=== PATIENT | female | born 1950 | race Caucasian/White ===

== ENCOUNTER 2016-12-26 08:02 | Day surgery (SDC) | payer BC ==
[2016-12-23 11:39] VITALS: BMI 39.4
[2016-12-26] MEDS ORDERED: CEFAZOLIN/Water 2 GM/20 ML SYRINGE ONE (09:23)
[2016-12-26 09:26] LABS: Hematocrit 39.1 % (36.0-47.0); Mean Platelet Volume 9.8 fL (7.4-10.4); Red Blood Cell (RBC) Count 4.01 mill/uL (4.20-5.40); White Blood Cell (WBC) Count 6.9 thou/uL (4.8-10.8)
[2016-12-26 09:49] LABS: Anion Gap 14 mmol/L (10-20); BUN (Urea Nitrogen) 15 mg/dL (9.8-20.1); Calc. Creatinine Clearance 116 mL/min (70-130); Calcium 9.6 mg/dL (7.8-10.44); Carbon Dioxide 28 mmol/L (23-31); Chloride 102 mmol/L (98-107); Estimated GFR-MDRD 71
[2016-12-26] MEDS ORDERED: Midazolam HCl 2 mg/2 ml Vial ONE (10:15)
[2016-12-26] MEDS ORDERED: Sodium Chloride 0.9% 10 ML ONE (10:45)
[2016-12-26] MEDS ORDERED: Fentanyl 100 MCG/2 ML VIAL ONE ×3 (11:04→12:52)
[2016-12-26] MEDS ORDERED: Ondansetron HCl/PF 4 MG/2 ML Vial ONE (11:12)
[2016-12-26] MEDS ORDERED: Propofol 200 MG/20 ML VIAL ONE (11:12)
[2016-12-26] MEDS ORDERED: Glycopyrrolate 0.2 MG/ML 5 ML SYRINGE ONE (11:12)
[2016-12-26] MEDS ORDERED: Lidocaine 2% MPF 10 ML AMP (For Epidural Use) ONE (11:12)
[2016-12-26] MEDS ORDERED: ePHEDrine/0.9% NaCl/PF SYRINGE 50 mg/10 ml ONE (11:12)
[2016-12-26] MEDS ORDERED: Dexamethasone 20 MG/5 ML VIAL ONE (11:12)
[2016-12-26] MEDS ORDERED: Ketorolac Tromethamine 30 MG/ML VIAL ONE (11:12)
[2016-12-26] MEDS ORDERED: Meperidine HCl/PF 25 MG/ML VIAL ONE (12:26)
--- NOTE | 2016-12-26 12:32 | OP ---
DATE OF PROCEDURE: 12/26/2016 SURGEON: Oswaldo Severino ABRASIVE WORKER: CHERI Lyn PROCEDURE: L4-5 laminectomy, posterolateral arthrodesis, demineralized bone matrix, local morselize d autograft, pedicle screw instrumentation L4-L5. PROCEDURE IN DETAIL: The patient was brought into the operating room, intubated. She was rolled in the prone position on gel-filled chest rolls. Incision made exposing L4 and L5 bilaterally and our level was confirmed by x-ray. We placed pedicle screws at L4 and L5 bilaterally using lateral fluo roscopic guidance and positioning was confirmed with x-ray. A ning was secured between the screws, c onnected by nuts which were final tightened. The wound was then extensively irrigated, immaculate h emostasis was secured. A combination of demineralized bone matrix and local morselized autograft wa s laid over the bony surfaces bilaterally for the purpose of arthrodesis. Vancomycin powder was franco lied and the wound was then closed in anatomic layers.
--- NOTE | 2017-01-04 19:19 | EKG ---
Test Reason : PREOP Blood Pressure : / mmHG Vent. Rate : 056 BPM Atrial Rate : 056 BPM P-R Int : 174 ms QRS Dur : 152 ms QT Int : 490 ms P-R-T Axes : 067 -53 000 degrees QTc Int : 472 ms Sinus bradycardia Left axis deviation Left bundle branch block Abnormal ECG When compared with ECG of 13-JAN-2010 10:01, Nonspecific T wave abnormality has replaced inverted T waves in Inferior leads T wave inversion now evident in Lateral leads Confirmed by FOSTER JAUREGUI (2) on 01/04/2017 7:19:44 PM Referred By: LIDYA Confirmed By:FOSTER JAUREGUI
== END 2016-12-26 15:24 | disposition home or self-care (01) ==
LOC: SDC 08:02
PROVIDERS: ATTEND Neurological Surgery
PROC: 0SG00AJ Fusion of Lumbar Vertebral Joint with Interbody Fusion Device, Posterior Approach, Anterior Column, Open Approach (ICD-10-PCS; principal; 2016-12-26)
DX: M43.16 Spondylolisthesis, lumbar region (principal); I10 Essential (primary) hypertension; I44.7 Left bundle-branch block, unspecified; E78.5 Hyperlipidemia, unspecified; G47.30 Sleep apnea, unspecified; J30.2 Other seasonal allergic rhinitis; L40.50 Arthropathic psoriasis, unspecified; Z79.52 Long term (current) use of systemic steroids; Z79.899 Other long term (current) drug therapy; Z99.89 Dependence on other enabling machines and devices; Z96.7 Presence of other bone and tendon implants; Z96.651 Presence of right artificial knee joint; Z98.890 Other specified postprocedural states; Z87.891 Personal history of nicotine dependence
CPT/HCPCS: 36415; 76001; 80048; 85027; 93005; 93010; 96374; A4216; C1713; C1768; J1100; J1170; J1885; J2001; J2175; J2250; J2405; J2704; J3010; J3370; J3490

== ENCOUNTER 2017-01-10 10:07 | Outpatient (CLI) | payer BC ==
--- NOTE | 2017-01-10 11:43 | RAD ---
TWO VIEWS LUMBAR SPINE: Date: 01-10-17 History: Lumbar spondylosis with myelopathy. Post-surgery two weeks ago. Comparison: None available. FINDINGS: Six non-rib bearing lumbar type vertebral bodies, but the T12 ribs are probably hypoplastic. For the purposes of this examination, the T12 ribs will be presumed to be hypoplastic with five non-rib beari ng lumbar type vertebral bodies and the lumbosacral junction numbered L5-S1. There are post-surgical changes of the lumbar spine related to posterior fusion at the L4-5 level wit h bipedicular screws and posterior rods transfixing this level. There is mild grade 1 anterolisthesis of L4 on L5. No hardware complication is seen. There is no evidence of a fracture. The vertebral bod y heights are within normal limits. Multilevel osteophytes are present. There is multilevel intervert ebral disc space narrowing present. No additional level of subluxation is seen and there is no fractu re identified. There is a curvilinear area of increased density seen overlying the left lower quadrant which is of u ncertain etiology. This could be artifactual, partially calcified structure within the abdomen cannot be entirely excluded. IMPRESSION: 1. There are curvilinear radiopaque densities, possibly calcifications, overlying the left lower quad rant of the abdomen. This cannot be further localized and the exact etiology is uncertain. This could be artifactual, but a calcified structure within the abdomen is a possibility. Abdominal radiograph is recommended for further evaluation. 2. Slight right convex curvature of the lumbar spine. 3. Post-surgical changes L4-5 level related to posterior fusion. No hardware complication is seen. 4. Scattered multilevel degenerative changes of the lumbar spine. POS: [facility]
== END 2017-01-10 10:08 | disposition home or self-care (01) ==
LOC: TBSIIMAG 10:07
PROVIDERS: ATTEND Physician Assistant
DX: M47.816 Spondylosis without myelopathy or radiculopathy, lumbar region (principal); Z98.1 Arthrodesis status
CPT/HCPCS: 72100

== ENCOUNTER 2017-02-28 14:23 | Outpatient (CLI) | payer BC ==
--- NOTE | 2017-02-28 15:32 | RAD ---
LUMBAR SPINE RADIOGRAPHS TWO VIEWS: Date: 02-28-17 Provided Clinical History: Other intervertebral disc degeneration. FINDINGS: Comparison 01-10-17. Lumbar alignment is unchanged. Bilateral pedical screws and vertical interconnecting rods are again n oted spanning L4-5. No evidence for hardware loosening or migration. Vertebral body heights appear pr eserved. Lumbar degenerative changes appear similar to the prior study. Visualized pedicles appear in tact. IMPRESSION: Stable radiographic appearance of the lumbar spine. POS: [facility]
== END 2017-02-28 14:24 | disposition home or self-care (01) ==
LOC: TBSIIMAG 14:23
PROVIDERS: ATTEND Neurological Surgery
DX: M51.36 Other intervertebral disc degeneration, lumbar region (principal)
CPT/HCPCS: 72100

== ENCOUNTER 2017-05-12 10:01 | Outpatient (CLI) | payer BC ==
--- NOTE | 2017-05-12 10:27 | RAD ---
RADIOGRAPH CHEST 2 VIEWS: HISTORY: 66-year-old female with allergic reaction. No other information is available. FINDINGS: There is cardiomegaly. The thoracic aorta is tortuous and ectatic. There is no evidence of air space density, pulmonary edema, or pneumothorax. There is no pleural effusion. IMPRESSION: 1) No acute pulmonary findings. 2) Cardiomegaly without congestive heart failure. 3) Ectasia of thoracic aorta. edwige POS: [facility]
== END 2017-05-12 10:02 | disposition home or self-care (01) ==
LOC: RAD-FRANK 10:01
PROVIDERS: ATTEND Nurse Practitioner Family
DX: Z88.9 Allergy status to unspecified drugs, medicaments and biological substances (principal); I51.7 Cardiomegaly; I77.810 Thoracic aortic ectasia
CPT/HCPCS: 71046

== ENCOUNTER 2017-08-25 08:33 | Outpatient (CLI) | payer BC ==
--- NOTE | 2017-08-25 09:57 | RAD ---
CHEST 2 VIEWS: HISTORY: Dyspnea. COMPARISON: 05/12/17. FINDINGS: Cardiac silhouette remains enlarged. Pulmonary vasculature upper limits of normal. Mediastinum midl ine. No lobar consolidation, pneumothorax, or pleural fluid are evident. IMPRESSION: Mild pulmonary vascular congestion, cardiomegaly, and other chronic-type findings are stable. POS: [facility]
== END 2017-08-25 08:34 | disposition home or self-care (01) ==
LOC: RAD-FRANK 08:33
PROVIDERS: ATTEND Nurse Practitioner Family
DX: R06.02 Shortness of breath (principal); I51.7 Cardiomegaly; R09.89 Other specified symptoms and signs involving the circulatory and respiratory systems
CPT/HCPCS: 71046

== ENCOUNTER 2018-03-30 12:49 | Outpatient (CLI) | payer MEDICARE, BC ==
--- NOTE | 2018-03-30 14:57 | RAD ---
LUMBAR SPINE RADIOGRAPHS 4 VIEWS: DATE: 03/30/2018. PROVIDED CLINICAL HISTORY: Lumbar stenosis. FINDINGS: Comparison is made with the study dated 02/28/2017. Five [id number] lumbar-type vertebral bodies are again demonstrated. Slight retrolisthesis of L3 on L4 and L2 on L3 redemonstrated. Slight anter olisthesis at L4 on L5 redemonstrated. Bilateral pedicle screws and vertical interconnecting rods ar e noted spanning L4-5 without evidence for hardware loosening or migration. There is no abnormal tra nslational motion with flexion and extension. Prominent degenerative disk changes are seen at L1-2. IMPRESSION: Stable exam. POS: [facility]
--- NOTE | 2018-03-30 15:04 | MRI ---
MRI LUMBAR SPINE WITH AND WITHOUT IV CONTRAST: DATE: 03/30/2018. PROVIDED CLINICAL HISTORY: Lumbar stenosis. FINDINGS: Comparison is made with the study dated 12/03/2016. Five lumbar vertebral bodies demonstrated on radiographs performed concurrently. Lumbar alignment ap pears unchanged. Interval placement of bilateral pedicle screws and vertical interconnecting rods sp anning L4-5. Regional marrow signal unaffected by susceptibility artifact appears normal. Vertebral body heights are preserved. The conus medullaris is normal in signal and terminates at an appropria te level. At L1-2, there is conspicuous disk space height loss and end plate degenerative change with a broad-b ased disk bulge and accompanying osteophyte. There is mild-moderate central canal stenosis. There i s no significant foraminal narrowing apparent. At L2-3, there is a broad-based disk bulge with a small central disk protrusion. There is mild centr al canal stenosis. There is mild bilateral facet arthritis. There is no significant foraminal narro wing apparent. At L3-4, there is bilateral facet arthritis. There is no significant central canal or foraminal narr owing apparent. At L4-5, there is no significant central canal stenosis apparent. There is mild-moderate left forami nal narrowing. There is no significant right foraminal narrowing. At L5-S1, there is bilateral facet arthritis and a broad-based disk bulge. There is no significant c entral canal or foraminal narrowing apparent. There is no abnormal contrast enhancement identified. IMPRESSION: Degenerative and postoperative changes involving the lumbar spine as described above, appearing not s ignificantly changed with respect to 11/23/2016. POS: [facility]
== END 2018-03-30 12:50 | disposition home or self-care (01) ==
LOC: BICMRI 12:49
PROVIDERS: ATTEND Nurse Practitioner Family
DX: M47.26 Other spondylosis with radiculopathy, lumbar region (principal); M48.061 Spinal stenosis, lumbar region without neurogenic claudication; Z98.890 Other specified postprocedural states
CPT/HCPCS: 72110; 72158; 82565

== ENCOUNTER 2018-08-08 14:28 | Outpatient (CLI) | payer MEDICARE, BC ==
--- NOTE | 2018-08-08 15:01 | RAD ---
EXAM: Chest PA and lateral: HISTORY: Dyspnea. COMPARISON: 08/25/2017 FINDINGS: Heart: Normal cardiac silhouette Aorta: Unremarkable Pulmonary vessels: Prominent Costophrenic angles: Costophrenic angles are clear. Lungs: Patchy interstitial opacities in the lung bases. Chronic changes favored. Superimposed infiltr ate in the left lung base cannot be entirely excluded. Pneumothorax: No pneumothorax Osseous structures: No osseous abnormalities IMPRESSION: Chronic changes in the lung parenchyma. Pulmonary vascular congestion. Superimposed infiltrate at lef t lung base cannot be excluded.
== END 2018-08-08 14:29 | disposition home or self-care (01) ==
LOC: RAD-FRANK 14:28
PROVIDERS: ATTEND Internal Medicine Cardiovascular Disease
DX: R06.02 Shortness of breath (principal); R06.00 Dyspnea, unspecified; R09.89 Other specified symptoms and signs involving the circulatory and respiratory systems
CPT/HCPCS: 71046

== ENCOUNTER 2019-03-18 14:12 | Outpatient (CLI) | payer MEDICARE, BC ==
--- NOTE | 2019-03-18 15:31 | RAD ---
LEFT FOOT THREE VIEWS: History: Foot pain. FINDINGS: Small enthesophyte from the plantar calcaneus. Mild degenerative change of the intertarsal joints and the tarsal metatarsal joints. Mild DJD at the first MCP joint. No fracture or acute abnormality. IMPRESSION: Degenerative changes as described. POS: [facility]
== END 2019-03-18 14:13 | disposition home or self-care (01) ==
LOC: RAD-FRANK 14:12
PROVIDERS: ATTEND Nurse Practitioner Family
DX: M79.672 Pain in left foot (principal); M19.072 Primary osteoarthritis, left ankle and foot

== ENCOUNTER 2019-11-25 07:36 | Outpatient (CLI) | payer MEDICARE, BC, OTHER ==
[2019-11-26 16:20] LABS: SARS-CoV-2 MS2 Positive; SARS-CoV-2 N Gene Negative; SARS-CoV-2 S Gene Negative; SARS-CoV-2 by NAA Not Detected (NotDetected); SARS-CoV-2 orf1ab Negative
== END 2019-11-25 07:37 | disposition home or self-care (01) ==
LOC: LABBT 07:36
PROVIDERS: ATTEND Specialist
DX: M96.1 Postlaminectomy syndrome, not elsewhere classified (principal); G89.4 Chronic pain syndrome; Z20.828 Contact with and (suspected) exposure to other viral communicable diseases
CPT/HCPCS: 87635; U0003

== ENCOUNTER 2019-12-16 07:47 | Outpatient (CLI) | payer MEDICARE, BC, OTHER ==
[2019-12-17 11:05] LABS: SARS-CoV-2 MS2 Positive; SARS-CoV-2 N Gene Negative; SARS-CoV-2 S Gene Negative; SARS-CoV-2 by NAA Not Detected (NotDetected); SARS-CoV-2 orf1ab Negative
== END 2019-12-16 07:48 | disposition home or self-care (01) ==
LOC: LABBT 07:47
PROVIDERS: ATTEND Specialist
DX: M96.1 Postlaminectomy syndrome, not elsewhere classified (principal); G89.4 Chronic pain syndrome; Z20.828 Contact with and (suspected) exposure to other viral communicable diseases
CPT/HCPCS: 87635; U0003

== ENCOUNTER 2019-12-19 10:00 | Day surgery (SDC) | payer MEDICARE, BC ==
[2019-12-18 09:23] VITALS: BMI 44.6
[2019-12-19] MEDS ORDERED: PROPOFOL 200 MG/20 ML VIAL ONE (10:33)
[2019-12-19] MEDS ORDERED: Sodium Chloride 0.9% 100 ML ONE (10:59)
[2019-12-19] MEDS ORDERED: CEFAZOLIN 1 GM VIAL ONE (10:59)
[2019-12-19] MEDS ORDERED: Fentanyl 100 MCG/2 ML VIAL ONE (11:19)
[2019-12-19] MEDS ORDERED: Propofol 500 MG/50 ML VIAL ONE ×3 (12:23→14:14)
[2019-12-19] MEDS ORDERED: Midazolam HCl 2 mg/2 ml Vial ONE (12:23)
[2019-12-19] MEDS ORDERED: EPINEPHrine 1 MG/ML AMP ONE (12:35)
[2019-12-19] MEDS ORDERED: Bupivacaine PF 0.5% 30 ML VIAL ONE ×2 (12:35→12:36)
[2019-12-19] MEDS ORDERED: Lidocaine 1% (PF) 30 ML VIAL ONE (13:17)
--- NOTE | 2019-12-19 17:12 | RAD ---
THORACIC SPINE: 12/19/19 Two fluoroscopic views obtained. INDICATIONS: Fluoroscopic imaging during dorsal column stimulator implantation. FINDINGS/IMPRESSION: There are lateral and AP views obtained. The leads appear to reside at the T7 level. POS: [facility]
--- NOTE | 2019-12-19 19:09 | OP ---
DATE OF PROCEDURE: 12/19/2019 PREOPERATIVE DIAGNOSES: 1. Post-laminectomy syndrome. 2. Chronic pain syndrome. 3. Lumbar radiculopathy. POSTOPERATIVE DIAGNOSES: 1. Post-laminectomy syndrome. 2. Chronic pain syndrome. 3. Lumbar radiculopathy. PROCEDURES PERFORMED: 1. Spinal cord stimulator generator implant. 2. Spinal cord stimulator lead implant x2. DESCRIPTION OF PROCEDURE: The patient was taken to the operating room and placed prone on the operating room table. We prepped the back with DuraPrep. Sterile drapes were applied. Time-out was performed. Using fluoroscopy, we located the interspace of T12-L1. We anesthetized the skin with 0.5% Marcaine with epinephrine and made an incision in midline and blunt dissected this down to fascia. We then inserted the supplied 14-gauge Touhy needle in a paramedian technique and engaged it in the T12-L1 ligament. We used loss of resistance to air to achieve access to the epidural space. Once accessed, the aspiration was negative for heme or CSF. An 8-contact Medtronic lead was threaded through the needle up the midline dorsal epidural space to the bottom of T7. The same procedure was conducted on the contralateral side for a parallel lead ending at the same level. Testing was performed intraoperatively with the patient awake and the patient noted paresthesia in all pain areas. We then took the needle out and the stylets out, taking care not to move the leads. An anchor was placed over both leads and the anchor was fixated to fascia using 2-0 silk suture x2 for each lead. We anesthetized the pocket area in the right upper buttock. We used a scalpel to make an incision and blunt dissected this down to Alexy's fascia. This was blunt dissected inferiorly and superiorly to make a pocket. We used a tunneling device to make a tunnel between the two pockets and then threaded the lead through the tunnel and brought the ends of the leads to the battery pocket area. These were attached to the battery and fixated down to the battery with the torque wrench. Testing was performed and impedances were all good. The battery was placed inside the pocket. The fascial layers were approximated using 2-0 Vicryl suture in horizontal mattress and simple interrupted stitches in two layers and the skin was brought together with subcuticular stitch using 3-0 Rapide. Dermabond was placed over the wounds and allowed to dry. The lead incision was also reinforced with Mastisol and Steri-Strips. Sterile 4x4s were placed over the wounds and Medipore tape was used to fixate these to the skin. The patient was taken to the Day Stay under stable condition. Job ID: [id number]
== END 2019-12-19 16:05 | disposition home or self-care (01) ==
LOC: SDC 10:00
PROVIDERS: ATTEND Specialist
PROC: 0JH70DZ Insertion of Multiple Array Stimulator Generator into Back Subcutaneous Tissue and Fascia, Open Approach (ICD-10-PCS; principal; 2019-12-19)
PROC: 00HU3MZ Insertion of Neurostimulator Lead into Spinal Canal, Percutaneous Approach (ICD-10-PCS; 2019-12-19)
DX: M96.1 Postlaminectomy syndrome, not elsewhere classified (principal); G89.4 Chronic pain syndrome; M54.16 Radiculopathy, lumbar region; Z79.82 Long term (current) use of aspirin; Z79.899 Other long term (current) drug therapy; Z88.2 Allergy status to sulfonamides; Z88.5 Allergy status to narcotic agent
CPT/HCPCS: 63650 ×2; 63685; 72070; 76000; C1778; C1787; L8679; L8689; J0171; J0690; J2001; J2250; J2704; J3010; J3490; S0020

== ENCOUNTER 2019-12-31 12:22 | Outpatient (CLI) | payer MEDICARE, BC ==
--- NOTE | 2019-12-31 12:58 | RAD ---
XR Foot Rt 3 View STANDARD History: Pain in right foot Comparison: None. Findings: Mild hallux valgus deformity and metatarsus primus varus. Advanced first and second metatar pranay phalangeal joint degenerative disease with narrowing and large osteophyte formation. No acute displaced fracture or malalignment. Mild soft tissue swelling of the ankle. Mild anterior me dial phleboliths of the distal tibia. Old fifth metatarsal fracture. Impression: Chronic findings. No acute osseous abnormality.
--- NOTE | 2019-12-31 13:17 | RAD ---
Exam: Left foot 3 views: HISTORY: Pain previous fracture COMPARISON: 03/18/2019 FINDINGS: There is an incomplete union irregular transverse fracture through the base of the fifth metatarsal. Minimal degenerative and osteoarthrosis change. No evidence for a new acute fracture. IMPRESSION: Incomplete union irregular transverse fracture base of the right fifth metatarsal.
== END 2019-12-31 12:23 | disposition home or self-care (01) ==
LOC: BICRAD 12:22
PROVIDERS: ATTEND Internal Medicine Rheumatology
DX: M79.671 Pain in right foot (principal); M79.672 Pain in left foot; S92.352K Displaced fracture of fifth metatarsal bone, left foot, subsequent encounter for fracture with nonunion

== ENCOUNTER 2020-02-05 10:34 | Day surgery (SDC) | payer MEDICARE, BC ==
[2020-02-05] MEDS ORDERED: Acetaminophen 500 MG TAB PO PRN ×2 (10:41)
[2020-02-05] MEDS ORDERED: diphenhydrAMINE 50 MG/ML VIAL IVP PRN (10:42)
[2020-02-05] MEDS ORDERED: INFLIXIMAB-DYYB 700 MG in Sodium Chloride 0.9% 250 ML 180 ML IV SCH (10:45)
[2020-02-05] MEDS ORDERED: Sodium Chloride 0.9% 20 ML ONE (10:50)
[2020-02-05 11:50] VITALS: BP 144/66; TEMP 98.1
== END 2020-02-05 14:39 | disposition home or self-care (01) ==
LOC: ONC/OP 10:34
PROVIDERS: ATTEND Internal Medicine Rheumatology
DX: L40.50 Arthropathic psoriasis, unspecified (principal); Z88.2 Allergy status to sulfonamides; Z88.5 Allergy status to narcotic agent
CPT/HCPCS: 96375; 96413; 96415; J1200; J7050; Q5103

== ENCOUNTER 2020-02-25 11:08 | Outpatient (CLI) | payer MEDICARE ==
--- NOTE | 2020-02-25 12:11 | RAD ---
PA AND LATERAL CHEST: HISTORY: Shortness of breath. COMPARISON: 08/08/2018 study. FINDINGS: Heart size is enlarged. Aorta is tortuous. The lungs are clear of infiltrates. A dorsal column sti mulator is seen. Catheter tip is at the mid thoracic spine level. IMPRESSION: Mild cardiomegaly. POS: [facility]
== END 2020-02-25 11:09 | disposition home or self-care (01) ==
LOC: RAD-FRANK 11:08
PROVIDERS: ATTEND Nurse Practitioner Family
DX: R06.02 Shortness of breath (principal); I51.7 Cardiomegaly
CPT/HCPCS: 71046

== ENCOUNTER 2020-03-18 10:29 | Day surgery (SDC) | payer MEDICARE, BC ==
[~2020-03-18 10:29] MED LIST: Acetaminophen 500 MG TAB PO PRN; Acetaminophen 500 MG TAB PO SCH; INFLIXIMAB IVPB SCH; INFLIXIMAB-DYYB 700 MG in Sodium Chloride 0.9% 250 ML 180 ML IV SCH; SODIUM CHLORIDE 0.9% IVPB SCH; diphenhydrAMINE 50 MG/ML VIAL IVP SCH
[2020-03-18] MEDS ORDERED: Sodium Chloride 0.9% 20 ML ONE (10:36)
[2020-03-18 10:54] VITALS: BP 129/69; TEMP 97.8
[2020-03-18] MEDS ORDERED: FLU VACC QS2020-21(65YR UP)/PF 240 MCG/0.7 ML SYRINGE IM ONE (11:00)
== END 2020-03-18 16:10 | disposition home or self-care (01) ==
LOC: ONC/OP 10:29
PROVIDERS: ATTEND Internal Medicine Rheumatology
DX: L40.50 Arthropathic psoriasis, unspecified (principal); Z88.2 Allergy status to sulfonamides; Z88.5 Allergy status to narcotic agent
CPT/HCPCS: 96375; 96413; 96415; J1200; J1745; J7050; Q5103

== ENCOUNTER 2020-05-05 12:56 | Day surgery (SDC) | payer MEDICARE, BC ==
[~2020-05-05 12:56] MED LIST changes: -INFLIXIMAB IVPB SCH; -INFLIXIMAB-DYYB 700 MG in Sodium Chloride 0.9% 250 ML 180 ML IV SCH; +INFLIXIMAB-DYYB 700 MG in Sodium Chloride 0.9% 250 ML 180 ML IVPB SCH; -SODIUM CHLORIDE 0.9% IVPB SCH
[2020-05-05] MEDS ORDERED: Sodium Chloride 0.9% 20 ML ONE (13:01)
== END 2020-05-05 16:16 | disposition home or self-care (01) ==
LOC: ONC/OP 12:56
PROVIDERS: ATTEND Internal Medicine Rheumatology
DX: L40.50 Arthropathic psoriasis, unspecified (principal); Z88.2 Allergy status to sulfonamides; Z88.5 Allergy status to narcotic agent
CPT/HCPCS: 96375; 96413; 96415; J1200; J7050; Q5103

== ENCOUNTER 2020-05-07 13:25 | Outpatient (CLI) | payer MEDICARE, BC | END 2020-05-07 13:26 | disposition home or self-care (01) | LOC: BICMAMMO 13:25 | PROVIDERS: ATTEND Internal Medicine Pulmonary Disease | DX: M19.041 Primary osteoarthritis, right hand (principal); M81.0 Age-related osteoporosis without current pathological fracture; M85.89 Other specified disorders of bone density and structure, multiple sites | CPT/HCPCS: 77080 ==

== ENCOUNTER 2020-06-16 12:50 | Day surgery (SDC) | payer MEDICARE, BC ==
[2020-06-16 14:37] VITALS: BP 158/67; TEMP 98.1
== END 2020-06-16 16:14 | disposition home or self-care (01) ==
LOC: ONC/OP 12:50
PROVIDERS: ATTEND Internal Medicine Rheumatology
DX: L40.50 Arthropathic psoriasis, unspecified (principal); Z88.2 Allergy status to sulfonamides; Z88.8 Allergy status to other drugs, medicaments and biological substances
CPT/HCPCS: 96413; 96415; J7050; Q5103

== ENCOUNTER → 2020-07-28 | Day surgery (SDC) | payer MEDICARE, BC ==
[~2020-07-28] MED LIST changes: +INFLIXIMAB DYYB IVPB SCH; +SODIUM CHLORIDE 0.9% IVPB SCH; +Sodium Chloride 0.9% 20 ML ONE; +diphenhydrAMINE 25 MG CAP PO SCH
[2020-07-28 13:21] VITALS: BP 150/71; TEMP 98.1
== END ==
LOC: ONC/OP 12:55
PROVIDERS: ATTEND Internal Medicine Rheumatology
DX: L40.50 Arthropathic psoriasis, unspecified (principal); Z88.1 Allergy status to other antibiotic agents; Z88.2 Allergy status to sulfonamides; Z88.5 Allergy status to narcotic agent
CPT/HCPCS: 96413; 96415; J7050; Q0163; Q5103

== ENCOUNTER 2020-11-26 10:50 | Outpatient (CLI) | payer MEDICARE, BC | END 2020-11-26 10:51 | disposition home or self-care (01) | LOC: BICMAMMO 10:50 | PROVIDERS: ATTEND Obstetrics & Gynecology | DX: Z12.31 Encounter for screening mammogram for malignant neoplasm of breast (principal); M47.26 Other spondylosis with radiculopathy, lumbar region; Z96.82 Presence of neurostimulator; Z98.890 Other specified postprocedural states | CPT/HCPCS: 72110; 77063; 77067 ==

== ENCOUNTER 2020-12-01 13:07 | Day surgery (SDC) | payer MEDICARE, BC ==
[~2020-12-01 13:07] MED LIST changes: -INFLIXIMAB DYYB IVPB SCH; -SODIUM CHLORIDE 0.9% IVPB SCH; -Sodium Chloride 0.9% 20 ML ONE
[2020-12-01 14:19] LABS: ALT (SGPT) 45 U/L (8-55); AST (SGOT) 44 U/L (5-34); Albumin 3.5 g/dL (3.4-4.8); Alkaline Phosphatase 90 U/L (40-110); Anion Gap 13 mmol/L (10-20); BUN (Urea Nitrogen) 11 mg/dL (9.8-20.1); Bilirubin, Total 0.6 mg/dL (0.2-1.2); CRP (Inflammatory) Less than 0.50 mg/dL (= or < 0.5); Calc. Creatinine Clearance 0 mL/min (70-130); Calcium 8.6 mg/dL (7.8-10.44); Carbon Dioxide 27 mmol/L (23-31); Chloride 104 mmol/L (98-107); Glucose 118 mg/dL (80-115); Potassium 3.4 mmol/L (3.5-5.1); Protein, Total 6.5 g/dL (5.8-8.1); Sodium 141 mmol/L (136-145)
[2020-12-01 14:26] LABS: Band 9 % (5-11); Hemoglobin 14.7 g/dL (12.0-16.0); Lymphocytes 13 % (21-51); MDiff Complete? YES; Mean Corpuscular HGB CONC 34.4 g/dL (32.0-36.0); Mean Corpuscular Volume 98.7 fL (78.0-98.0); Mean Platelet Volume 9.4 fL (7.4-10.4); Monocytes 13 % (0-10); Myelocyte 1 % (0-0); Neutrophil 62 % (42-75); Platelet Count 121 thou/uL (130-400); Platelet Morphology Comment Appears Decreased; RBC Distribution Width 13.1 % (11.5-14.5); RBC Morphology Normal; Reactive Lymphocytes 2 % (0-10); Red Blood Cell (RBC) Count 4.34 mill/uL (4.20-5.40); White Blood Cell (WBC) Count 12.4 thou/uL (4.8-10.8)
[2020-12-01 14:57] VITALS: BP 179/84; TEMP 98.7
== END 2020-12-01 15:47 | disposition home or self-care (01) ==
LOC: ONC/OP 13:07
PROVIDERS: ATTEND Internal Medicine Rheumatology
DX: L40.50 Arthropathic psoriasis, unspecified (principal); Z88.1 Allergy status to other antibiotic agents; Z88.2 Allergy status to sulfonamides; Z88.8 Allergy status to other drugs, medicaments and biological substances
CPT/HCPCS: 36415; 80053; 85025; 85652; 86140; 96413; 96415; J1200; J7050; Q5103

== ENCOUNTER 2020-12-23 10:20 | Inpatient (IN) | payer MEDICARE, BC ==
[2020-12-23] MEDS ORDERED: Dexamethasone 10 MG/ML VIAL ONE (10:58)
[2020-12-23] MEDS ORDERED: Morphine 4 MG/ML VIAL ONE ×3 (10:58→14:52)
[2020-12-23] MEDS ORDERED: Acetaminophen 325 MG TAB PO PRN (16:18)
[2020-12-23] MEDS ORDERED: HYDROcodone/Acetaminophen 5/325 mg Tablet PO PRN (16:18)
[2020-12-23] MEDS ORDERED: Bisacodyl 10 MG SUPP PR PRN (16:18)
[2020-12-23] MEDS ORDERED: Ondansetron PF 4 MG/2 ML Vial IVP PRN (16:18)
[2020-12-23] MEDS ORDERED: Bisacodyl 5 MG TAB PO PRN (16:18)
[2020-12-23] MEDS ORDERED: Senokot S 8.6-50 MG TAB PO PRN (16:18)
[2020-12-23 16:54] LABS: Hemoglobin 14.9 g/dL (12.0-16.0); Mean Corpuscular HGB CONC 32.8 g/dL (32.0-36.0); Mean Corpuscular Hemoglobin 33.3 pg (27.0-31.0); Mean Platelet Volume 11.1 fL (7.4-10.4); Platelet Count 139 thou/uL (130-400); RBC Distribution Width 12.5 % (11.5-14.5); White Blood Cell (WBC) Count 9.8 thou/uL (4.8-10.8)
[2020-12-23 17:03] LABS: PTT 24.4 sec (22.9-36.1)
[2020-12-23 17:13] LABS: Band 11 % (5-11); Lymphocytes 8 % (21-51); MDiff Complete? YES; Neutrophil 81 % (42-75); Nucleated RBC 1 % (0); Platelet Morphology Comment Appears Adequate; RBC Morphology Normal
[2020-12-23 17:14] LABS: ALT (SGPT) 68 U/L (8-55); AST (SGOT) 36 U/L (5-34); Albumin 3.6 g/dL (3.4-4.8); Alkaline Phosphatase 87 U/L (40-110); Anion Gap 14 mmol/L (10-20); BUN (Urea Nitrogen) 20 mg/dL (9.8-20.1); Bilirubin, Total 0.6 mg/dL (0.2-1.2); Calc. Creatinine Clearance 0 mL/min (70-130); Calcium 8.6 mg/dL (7.8-10.44); Carbon Dioxide 25 mmol/L (23-31); Chloride 103 mmol/L (98-107); Glucose 206 mg/dL (80-115); Magnesium 2.1 mg/dL (1.6-2.6); Phosphorus 3.3 mg/dL (2.3-4.7); Potassium 4.6 mmol/L (3.5-5.1); Protein, Total 6.6 g/dL (5.8-8.1); Sodium 137 mmol/L (136-145)
[2020-12-23 18:15] VITALS: BMI 44.6
[2020-12-23] MEDS: Ketorolac Tromethamine 30 MG/ML VIAL IVP SCH (19:03)
[2020-12-23] MEDS: Hydrochlorothiazide 25 MG TAB PO SCH (21:20)
[2020-12-23] MEDS: Atorvastatin Calcium 10 MG TAB PO SCH (21:20)
[2020-12-23] MEDS: Gabapentin 300 MG CAP PO SCH (21:20)
[2020-12-23] MEDS: Losartan 25 MG TAB PO SCH (21:21)
[2020-12-23] MEDS: Amlodipine 5 MG TAB PO SCH (21:21)
[2020-12-23] MEDS: HYDROcodone/Acetaminophen 5/325 mg Tablet PO PRN (22:38)
[2020-12-24] MEDS: Ketorolac Tromethamine 30 MG/ML VIAL IVP SCH ×4 (00:32→18:18)
[2020-12-24] MEDS: HYDROmorphone 2 MG TAB PO PRN ×2 (05:49→16:59)
[2020-12-24 06:32] LABS: #Lymphocytes 1.1 thou/uL (1.20-3.40); #Monocytes 1.2 thou/uL (0.11-0.59); #Neutrophils 10.1 thou/uL (1.40-6.50); %Basophils 0.2 % (0.0-1.0); %Eosinophils 0.4 % (0.0-10.0); %Lymphocytes 8.9 % (21.0-51.0); %Monocytes 9.5 % (0.0-10.0); Hemoglobin 14.4 g/dL (12.0-16.0); Mean Corpuscular HGB CONC 32.2 g/dL (32.0-36.0); Mean Corpuscular Hemoglobin 32.4 pg (27.0-31.0); Mean Platelet Volume 10.6 fL (7.4-10.4); Platelet Count 142 thou/uL (130-400); RBC Distribution Width 12.3 % (11.5-14.5); Red Blood Cell (RBC) Count 4.45 mill/uL (4.20-5.40); White Blood Cell (WBC) Count 12.5 thou/uL (4.8-10.8)
[2020-12-24 06:38] LABS: Hemoglobin A1c 5.5 % (4.0-6.0)
[2020-12-24 06:52] LABS: ALT (SGPT) 58 U/L (8-55); AST (SGOT) 25 U/L (5-34); Albumin 3.3 g/dL (3.4-4.8); Alkaline Phosphatase 91 U/L (40-110); Anion Gap 11 mmol/L (10-20); BUN (Urea Nitrogen) 26 mg/dL (9.8-20.1); Bilirubin, Total 0.4 mg/dL (0.2-1.2); Calc. Creatinine Clearance 119 mL/min (70-130); Calcium 8.7 mg/dL (7.8-10.44); Carbon Dioxide 26 mmol/L (23-31); Cardiac Risk 2.7 (Less than 4.5); Chloride 105 mmol/L (98-107); Cholesterol 185 mg/dl (< 200 Desired); Globulin 2.7 g/dL (2.4-3.5); Glucose 99 mg/dL (80-115); HDL Cholesterol 69 mg/dL (>60 Neg Risk); LDL Cholesterol, Calculated 97 mg/dL; Magnesium 2.3 mg/dL (1.6-2.6); Phosphorus 2.7 mg/dL (2.3-4.7); Sodium 138 mmol/L (136-145); Triglycerides 96 mg/dL (Less than 150)
[2020-12-24] MEDS: Lidocaine 5% Patch TD SCH (09:29)
[2020-12-24] MEDS: Dexamethasone 10 MG/ML VIAL SLOW IVP SCH ×2 (09:30→20:54)
[2020-12-24] MEDS: Aspirin 81 mg Enteric Coated Tablet PO SCH (09:30)
[2020-12-24] MEDS: Amlodipine 5 MG TAB PO SCH ×2 (09:30→20:53)
[2020-12-24] MEDS: Calcium Carbonate 600 MG TAB PO SCH (09:30)
[2020-12-24] MEDS: DULoxetine 60 MG CAP PO SCH (09:31)
[2020-12-24] MEDS: Gabapentin 300 MG CAP PO SCH ×3 (09:31→20:54)
[2020-12-24] MEDS: Fish Oil 1,000 MG CAP PO SCH (09:31)
[2020-12-24] MEDS: Folic Acid 1 MG TAB PO SCH (09:31)
[2020-12-24] MEDS: Potassium Chloride 20 MEQ TAB PO SCH (09:32)
[2020-12-24] MEDS: Multivitamin W/ Minerals 1 TAB PO SCH (09:32)
[2020-12-24] MEDS: HYDROcodone/Acetaminophen 5/325 mg Tablet PO PRN (09:33)
[2020-12-24] MEDS ORDERED: Dexamethasone 10 MG/ML VIAL SLOW IVP SCH (11:15)
[2020-12-24] MEDS: Atorvastatin Calcium 10 MG TAB PO SCH (20:54)
[2020-12-24] MEDS: Losartan 25 MG TAB PO SCH (20:55)
[2020-12-24] MEDS: Hydrochlorothiazide 25 MG TAB PO SCH (20:55)
[2020-12-24] MEDS: Transdermal Patch Removal TOP SCH (21:02)
[2020-12-25] MEDS: HYDROcodone/Acetaminophen 5/325 mg Tablet PO PRN ×2 (04:57→09:36)
[2020-12-25 06:16] LABS: #Eosinphils 0.1 thou/uL (0.0-0.7); #Lymphocytes 0.7 thou/uL (1.20-3.40); #Monocytes 0.3 thou/uL (0.11-0.59); #Neutrophils 12.1 thou/uL (1.40-6.50); %Basophils 0.1 % (0.0-1.0); %Eosinophils 0.5 % (0.0-10.0); %Lymphocytes 5.4 % (21.0-51.0); %Monocytes 2.3 % (0.0-10.0); %Neutrophils 91.6 % (42.0-75.0); Hemoglobin 14.4 g/dL (12.0-16.0); Mean Corpuscular HGB CONC 33.6 g/dL (32.0-36.0); Mean Corpuscular Hemoglobin 33.4 pg (27.0-31.0); Mean Corpuscular Volume 99.5 fL (78.0-98.0); Mean Platelet Volume 10.8 fL (7.4-10.4); Platelet Count 141 thou/uL (130-400); RBC Distribution Width 12.3 % (11.5-14.5); Red Blood Cell (RBC) Count 4.31 mill/uL (4.20-5.40); White Blood Cell (WBC) Count 13.2 thou/uL (4.8-10.8)
[2020-12-25] MEDS: HYDROmorphone 2 MG TAB PO PRN ×2 (06:34→13:59)
[2020-12-25 07:06] LABS: ALT (SGPT) 58 U/L (8-55); AST (SGOT) 26 U/L (5-34); Albumin 3.2 g/dL (3.4-4.8); Alkaline Phosphatase 86 U/L (40-110); Anion Gap 14 mmol/L (10-20); BUN (Urea Nitrogen) 22 mg/dL (9.8-20.1); Bilirubin, Total 0.4 mg/dL (0.2-1.2); Calc. Creatinine Clearance 127 mL/min (70-130); Calcium 8.1 mg/dL (7.8-10.44); Carbon Dioxide 24 mmol/L (23-31); Chloride 104 mmol/L (98-107); Globulin 2.5 g/dL (2.4-3.5); Glucose 131 mg/dL (80-115); Magnesium 2.2 mg/dL (1.6-2.6); Potassium 3.7 mmol/L (3.5-5.1); Protein, Total 5.7 g/dL (5.8-8.1); Sodium 138 mmol/L (136-145)
[2020-12-25] MEDS ORDERED: Diazepam 5 MG TAB PO SCH (07:30)
[2020-12-25] MEDS: Lidocaine 5% Patch TD SCH (08:22)
[2020-12-25] MEDS: Fish Oil 1,000 MG CAP PO SCH (08:22)
[2020-12-25] MEDS: Cyclobenzaprine 10 MG TAB PO SCH ×3 (08:23→20:56)
[2020-12-25] MEDS: Calcium Carbonate 600 MG TAB PO SCH (08:23)
[2020-12-25] MEDS: Folic Acid 1 MG TAB PO SCH (08:23)
[2020-12-25] MEDS: Gabapentin 300 MG CAP PO SCH ×3 (08:24→20:58)
[2020-12-25] MEDS: Amlodipine 5 MG TAB PO SCH ×2 (08:24→20:57)
[2020-12-25] MEDS: DULoxetine 60 MG CAP PO SCH (08:25)
[2020-12-25] MEDS: Aspirin 81 mg Enteric Coated Tablet PO SCH (08:25)
[2020-12-25] MEDS: Multivitamin W/ Minerals 1 TAB PO SCH (08:25)
[2020-12-25] MEDS: Potassium Chloride 20 MEQ TAB PO SCH (08:25)
[2020-12-25] MEDS: Ibuprofen 600 MG TAB PO SCH ×2 (09:37→15:57)
[2020-12-25 12:05] LABS: SARS-CoV-2 PCR by NAA Not Detected (NotDetected)
[2020-12-25] MEDS: Atorvastatin Calcium 10 MG TAB PO SCH (20:56)
[2020-12-25] MEDS: Losartan 25 MG TAB PO SCH (20:57)
[2020-12-25] MEDS: Hydrochlorothiazide 25 MG TAB PO SCH (20:57)
[2020-12-25] MEDS: Transdermal Patch Removal TOP SCH (21:00)
[2020-12-25] MEDS: HYDROcodone/Acetaminophen 10/325 mg Tablet PO PRN (21:04)
[2020-12-26] MEDS: HYDROmorphone 2 MG TAB PO PRN (06:34)
[2020-12-26 06:56] LABS: #Basophils 0.1 thou/uL (0.0-0.2); #Eosinphils 0.1 thou/uL (0.0-0.7); #Lymphocytes 1.7 thou/uL (1.20-3.40); #Monocytes 1.1 thou/uL (0.11-0.59); #Neutrophils 13.4 thou/uL (1.40-6.50); %Basophils 0.5 % (0.0-1.0); %Eosinophils 0.8 % (0.0-10.0); %Lymphocytes 10.3 % (21.0-51.0); %Monocytes 6.6 % (0.0-10.0); %Neutrophils 81.7 % (42.0-75.0); Mean Corpuscular HGB CONC 33.6 g/dL (32.0-36.0); Mean Corpuscular Hemoglobin 33.6 pg (27.0-31.0); Mean Platelet Volume 10.9 fL (7.4-10.4); Platelet Count 146 thou/uL (130-400); RBC Distribution Width 12.4 % (11.5-14.5); Red Blood Cell (RBC) Count 4.47 mill/uL (4.20-5.40); White Blood Cell (WBC) Count 16.4 thou/uL (4.8-10.8)
[2020-12-26 07:00] LABS: ALT (SGPT) 56 U/L (8-55); AST (SGOT) 27 U/L (5-34); Albumin 3.2 g/dL (3.4-4.8); Alkaline Phosphatase 84 U/L (40-110); Anion Gap 13 mmol/L (10-20); BUN (Urea Nitrogen) 19 mg/dL (9.8-20.1); Bilirubin, Total 0.6 mg/dL (0.2-1.2); Calc. Creatinine Clearance 135 mL/min (70-130); Calcium 8.3 mg/dL (7.8-10.44); Carbon Dioxide 24 mmol/L (23-31); Chloride 105 mmol/L (98-107); Globulin 2.7 g/dL (2.4-3.5); Glucose 88 mg/dL (80-115); Magnesium 2.1 mg/dL (1.6-2.6); Phosphorus 2.8 mg/dL (2.3-4.7); Potassium 3.7 mmol/L (3.5-5.1); Protein, Total 5.9 g/dL (5.8-8.1); Sodium 138 mmol/L (136-145)
[2020-12-26] MEDS: Aspirin 81 mg Enteric Coated Tablet PO SCH (08:14)
[2020-12-26] MEDS: Lidocaine 5% Patch TD SCH (08:14)
[2020-12-26] MEDS: Potassium Chloride 20 MEQ TAB PO SCH (08:15)
[2020-12-26] MEDS: Amlodipine 5 MG TAB PO SCH ×2 (08:15→21:33)
[2020-12-26] MEDS: Calcium Carbonate 600 MG TAB PO SCH (08:15)
[2020-12-26] MEDS: Cyclobenzaprine 10 MG TAB PO SCH ×3 (08:15→21:29)
[2020-12-26] MEDS: Folic Acid 1 MG TAB PO SCH (08:15)
[2020-12-26] MEDS: Fish Oil 1,000 MG CAP PO SCH (08:15)
[2020-12-26] MEDS: Gabapentin 300 MG CAP PO SCH ×3 (08:22→21:29)
[2020-12-26] MEDS: DULoxetine 60 MG CAP PO SCH (08:22)
[2020-12-26] MEDS: Multivitamin W/ Minerals 1 TAB PO SCH (08:23)
[2020-12-26] MEDS: HYDROcodone/Acetaminophen 10/325 mg Tablet PO PRN ×3 (09:44→21:33)
[2020-12-26 16:43] LABS: Bilirubin Negative (Negative); Blood, Urine Negative (Negative); Clarity Clear (Clear); Glucose, Urine (Dipstick) Normal (Negative); Ketone, Urine Negative (Negative); Leukocyte Negative Leu/uL (Negative); Nitrite Negative (Negative); Protein, Urine (Dipstick) Negative (Neg-Trace); RBC/HPF 0-3 HPF (0-3); Specific Gravity, Urine 1.011 (1.002-1.036); Squamous Epithelial 0-3 HPF (0-3); Urobilinogen Normal mg/dL (Less than 2); WBC/HPF 0-3 HPF (0-3)
[2020-12-26 16:44] LABS: Bacteria/HPF 1+ HPF (None Seen); Urine Culture Reflex Yes Yes
[2020-12-26] MEDS ORDERED: FLU VACC QS2021-22(65YR UP)/PF 240 MCG/0.7 ML SYRINGE IM ONE (18:30)
[2020-12-26] MEDS: Atorvastatin Calcium 10 MG TAB PO SCH (21:28)
[2020-12-26] MEDS: Losartan 25 MG TAB PO SCH (21:30)
[2020-12-26] MEDS: Hydrochlorothiazide 25 MG TAB PO SCH (21:30)
[2020-12-27] MEDS: Transdermal Patch Removal TOP SCH ×2 (00:59→20:25)
[2020-12-27] MEDS: HYDROmorphone 2 MG TAB PO PRN ×2 (04:14→14:19)
[2020-12-27 06:36] LABS: #Eosinphils 0.2 thou/uL (0.0-0.7); #Lymphocytes 1.4 thou/uL (1.20-3.40); #Monocytes 0.8 thou/uL (0.11-0.59); #Neutrophils 8.7 thou/uL (1.40-6.50); %Basophils 0.1 % (0.0-1.0); %Eosinophils 1.8 % (0.0-10.0); %Lymphocytes 12.9 % (21.0-51.0); %Monocytes 7.5 % (0.0-10.0); %Neutrophils 77.8 % (42.0-75.0); Hemoglobin 14.3 g/dL (12.0-16.0); Mean Corpuscular HGB CONC 32.7 g/dL (32.0-36.0); Mean Corpuscular Hemoglobin 33.4 pg (27.0-31.0); Mean Platelet Volume 10.9 fL (7.4-10.4); Platelet Count 127 thou/uL (130-400); RBC Distribution Width 12.4 % (11.5-14.5); Red Blood Cell (RBC) Count 4.29 mill/uL (4.20-5.40); White Blood Cell (WBC) Count 11.1 thou/uL (4.8-10.8)
[2020-12-27 06:57] LABS: ALT (SGPT) 54 U/L (8-55); AST (SGOT) 30 U/L (5-34); Albumin 3.1 g/dL (3.4-4.8); Alkaline Phosphatase 83 U/L (40-110); Anion Gap 13 mmol/L (10-20); BUN (Urea Nitrogen) 17 mg/dL (9.8-20.1); Bilirubin, Total 0.5 mg/dL (0.2-1.2); Calc. Creatinine Clearance 139 mL/min (70-130); Carbon Dioxide 29 mmol/L (23-31); Chloride 102 mmol/L (98-107); Globulin 2.5 g/dL (2.4-3.5); Glucose 74 mg/dL (80-115); Magnesium 2.3 mg/dL (1.6-2.6); Phosphorus 2.8 mg/dL (2.3-4.7); Potassium 3.5 mmol/L (3.5-5.1); Protein, Total 5.6 g/dL (5.8-8.1); Sodium 140 mmol/L (136-145)
[2020-12-27] MEDS: Aspirin 81 mg Enteric Coated Tablet PO SCH (07:51)
[2020-12-27] MEDS: Cyclobenzaprine 10 MG TAB PO SCH ×3 (07:51→20:03)
[2020-12-27] MEDS: Multivitamin W/ Minerals 1 TAB PO SCH (07:51)
[2020-12-27] MEDS: Lidocaine 5% Patch TD SCH (07:51)
[2020-12-27] MEDS: Calcium Carbonate 600 MG TAB PO SCH (07:51)
[2020-12-27] MEDS: DULoxetine 60 MG CAP PO SCH (07:52)
[2020-12-27] MEDS: Potassium Chloride 20 MEQ TAB PO SCH (07:52)
[2020-12-27] MEDS: Folic Acid 1 MG TAB PO SCH (07:52)
[2020-12-27] MEDS: Gabapentin 300 MG CAP PO SCH ×3 (07:52→20:02)
[2020-12-27] MEDS: Fish Oil 1,000 MG CAP PO SCH (07:52)
[2020-12-27] MEDS: Amlodipine 5 MG TAB PO SCH ×2 (07:52→20:04)
[2020-12-27] MEDS: HYDROcodone/Acetaminophen 10/325 mg Tablet PO PRN ×2 (10:23→20:03)
[2020-12-27] MEDS ORDERED: cefTRIAXone\\ROCEPHIN 1 GM in Sodium Chloride 0.9% 100 ML IVPB SCH (16:30)
[2020-12-27 17:11] LABS: Potassium 3.6 mmol/L (3.5-5.1)
[2020-12-27] MEDS: Hydrochlorothiazide 25 MG TAB PO SCH (20:02)
[2020-12-27] MEDS: Atorvastatin Calcium 10 MG TAB PO SCH (20:05)
[2020-12-28] MEDS: HYDROcodone/Acetaminophen 10/325 mg Tablet PO PRN ×4 (01:51→20:07)
[2020-12-28 06:30] LABS: #Eosinphils 0.1 thou/uL (0.0-0.7); #Lymphocytes 1.7 thou/uL (1.20-3.40); #Monocytes 0.8 thou/uL (0.11-0.59); #Neutrophils 7.5 thou/uL (1.40-6.50); %Basophils 0.4 % (0.0-1.0); %Eosinophils 1.3 % (0.0-10.0); %Lymphocytes 16.6 % (21.0-51.0); %Monocytes 8.1 % (0.0-10.0); %Neutrophils 73.6 % (42.0-75.0); Hemoglobin 13.6 g/dL (12.0-16.0); Mean Corpuscular HGB CONC 32.6 g/dL (32.0-36.0); Mean Corpuscular Hemoglobin 32.8 pg (27.0-31.0); Platelet Count 115 thou/uL (130-400); RBC Distribution Width 12.3 % (11.5-14.5); Red Blood Cell (RBC) Count 4.16 mill/uL (4.20-5.40); White Blood Cell (WBC) Count 10.2 thou/uL (4.8-10.8)
[2020-12-28 06:35] LABS: ALT (SGPT) 83 U/L (8-55); AST (SGOT) 58 U/L (5-34); Alkaline Phosphatase 97 U/L (40-110); Anion Gap 13 mmol/L (10-20); BUN (Urea Nitrogen) 15 mg/dL (9.8-20.1); Bilirubin, Total 0.6 mg/dL (0.2-1.2); Calc. Creatinine Clearance 129 mL/min (70-130); Calcium 8.3 mg/dL (7.8-10.44); Carbon Dioxide 26 mmol/L (23-31); Chloride 101 mmol/L (98-107); Globulin 2.5 g/dL (2.4-3.5); Glucose 90 mg/dL (80-115); Potassium 3.1 mmol/L (3.5-5.1); Protein, Total 5.5 g/dL (5.8-8.1); Sodium 137 mmol/L (136-145)
[2020-12-28] MEDS: Amlodipine 5 MG TAB PO SCH ×2 (08:07→20:06)
[2020-12-28] MEDS: DULoxetine 60 MG CAP PO SCH ×2 (08:11→11:37)
[2020-12-28] MEDS: Folic Acid 1 MG TAB PO SCH ×2 (08:11→11:38)
[2020-12-28] MEDS: Aspirin 81 mg Enteric Coated Tablet PO SCH ×2 (08:11→11:38)
[2020-12-28] MEDS: Cyclobenzaprine 10 MG TAB PO SCH (08:11)
[2020-12-28] MEDS: Gabapentin 300 MG CAP PO SCH ×4 (08:11→20:07)
[2020-12-28] MEDS: Lidocaine 5% Patch TD SCH ×2 (08:11→11:39)
[2020-12-28] MEDS: Calcium Carbonate 600 MG TAB PO SCH ×2 (08:11→11:38)
[2020-12-28] MEDS: Fish Oil 1,000 MG CAP PO SCH ×2 (08:11→11:37)
[2020-12-28] MEDS: Potassium Chloride 20 MEQ TAB PO SCH ×2 (08:12→11:37)
[2020-12-28] MEDS: Multivitamin W/ Minerals 1 TAB PO SCH ×2 (08:12→11:38)
[2020-12-28] MEDS: AMOXicillin 250 MG CAP PO SCH ×3 (11:37→20:05)
[2020-12-28] MEDS: HYDROmorphone 2 MG TAB PO PRN (13:35)
[2020-12-28] MEDS ORDERED: Iopamidol-M 300 61% 15 ML VIAL ONE (13:39)
[2020-12-28] MEDS ORDERED: Bupivacaine 0.25% 10 ML VIAL ONE (13:39)
[2020-12-28] MEDS ORDERED: Lidocaine 2% PF 5 ML VIAL ONE (13:39)
[2020-12-28] MEDS: Hydrochlorothiazide 25 MG TAB PO SCH (20:06)
[2020-12-28] MEDS: Atorvastatin Calcium 10 MG TAB PO SCH (20:06)
[2020-12-28] MEDS: Transdermal Patch Removal TOP SCH (20:08)
[2020-12-28] MEDS ORDERED: Losartan 25 MG TAB PO SCH (21:00)
[2020-12-29] MEDS: HYDROcodone/Acetaminophen 10/325 mg Tablet PO PRN ×2 (05:54→12:38)
[2020-12-29 06:47] LABS: #Basophils 0.1 thou/uL (0.0-0.2); #Eosinphils 0.1 thou/uL (0.0-0.7); #Lymphocytes 0.9 thou/uL (1.20-3.40); #Monocytes 0.7 thou/uL (0.11-0.59); #Neutrophils 6.8 thou/uL (1.40-6.50); %Basophils 0.6 % (0.0-1.0); %Eosinophils 0.8 % (0.0-10.0); %Lymphocytes 10.5 % (21.0-51.0); %Monocytes 8.3 % (0.0-10.0); %Neutrophils 79.7 % (42.0-75.0); Hemoglobin 13.7 g/dL (12.0-16.0); Mean Corpuscular HGB CONC 33.5 g/dL (32.0-36.0); Mean Corpuscular Hemoglobin 33.8 pg (27.0-31.0); Mean Platelet Volume 10.3 fL (7.4-10.4); Platelet Count 112 thou/uL (130-400); RBC Distribution Width 12.3 % (11.5-14.5); Red Blood Cell (RBC) Count 4.04 mill/uL (4.20-5.40); White Blood Cell (WBC) Count 8.5 thou/uL (4.8-10.8)
[2020-12-29 07:08] VITALS: BP 108/78; TEMP 97.8
[2020-12-29 07:14] LABS: ALT (SGPT) 93 U/L (8-55); AST (SGOT) 56 U/L (5-34); Alkaline Phosphatase 101 U/L (40-110); Anion Gap 13 mmol/L (10-20); BUN (Urea Nitrogen) 12 mg/dL (9.8-20.1); Bilirubin, Total 0.5 mg/dL (0.2-1.2); Calc. Creatinine Clearance 143 mL/min (70-130); Carbon Dioxide 29 mmol/L (23-31); Chloride 101 mmol/L (98-107); Globulin 2.4 g/dL (2.4-3.5); Glucose 113 mg/dL (80-115); Magnesium 2.2 mg/dL (1.6-2.6); Phosphorus 2.6 mg/dL (2.3-4.7); Potassium 3.5 mmol/L (3.5-5.1); Protein, Total 5.4 g/dL (5.8-8.1); Sodium 139 mmol/L (136-145)
[2020-12-29] MEDS: AMOXicillin 250 MG CAP PO SCH ×2 (08:01→14:29)
[2020-12-29] MEDS: Amlodipine 5 MG TAB PO SCH (08:02)
[2020-12-29] MEDS: DULoxetine 60 MG CAP PO SCH (08:02)
[2020-12-29] MEDS: Multivitamin W/ Minerals 1 TAB PO SCH (08:02)
[2020-12-29] MEDS: Fish Oil 1,000 MG CAP PO SCH (08:02)
[2020-12-29] MEDS: Aspirin 81 mg Enteric Coated Tablet PO SCH (08:02)
[2020-12-29] MEDS: HYDROmorphone 2 MG TAB PO PRN ×2 (08:02→16:20)
[2020-12-29] MEDS: Folic Acid 1 MG TAB PO SCH (08:02)
[2020-12-29] MEDS: Calcium Carbonate 600 MG TAB PO SCH (08:02)
[2020-12-29] MEDS: Gabapentin 300 MG CAP PO SCH ×2 (08:03→14:29)
[2020-12-29] MEDS: Potassium Chloride 20 MEQ TAB PO SCH (08:03)
[2020-12-29] MEDS: Lidocaine 5% Patch TD SCH (08:06)
== END 2020-12-29 17:10 | disposition home or self-care (01) | DRG 552 ==
LOC: SUATTDRO 10:20 → ERS 10:20 → T4-B 14:58 → OBSVTOIN 12-25 11:44
PROVIDERS: ADMIT Family Medicine; ATTEND Internal Medicine
PROC: 3E0R3BZ Introduction of Anesthetic Agent into Spinal Canal, Percutaneous Approach (ICD-10-PCS; principal; 2020-12-28)
PROC: 3E0R33Z Introduction of Anti-inflammatory into Spinal Canal, Percutaneous Approach (ICD-10-PCS; 2020-12-28)
PROC: 009U3ZX Drainage of Spinal Canal, Percutaneous Approach, Diagnostic (ICD-10-PCS; 2020-12-28)
PROC: B01B1ZZ Fluoroscopy of Spinal Cord using Low Osmolar Contrast (ICD-10-PCS; 2020-12-28)
DX: M48.061 Spinal stenosis, lumbar region without neurogenic claudication (principal); Z20.822 Contact with and (suspected) exposure to COVID-19; S73.191A Other sprain of right hip, initial encounter; Z28.21 Immunization not carried out because of patient refusal; M47.816 Spondylosis without myelopathy or radiculopathy, lumbar region; L40.50 Arthropathic psoriasis, unspecified; M51.36 Other intervertebral disc degeneration, lumbar region; I10 Essential (primary) hypertension; G89.29 Other chronic pain; G47.33 Obstructive sleep apnea (adult) (pediatric); M54.16 Radiculopathy, lumbar region; E78.00 Pure hypercholesterolemia, unspecified; D72.829 Elevated white blood cell count, unspecified; E87.5 Hyperkalemia; Z88.2 Allergy status to sulfonamides; Z88.8 Allergy status to other drugs, medicaments and biological substances; Z79.899 Other long term (current) drug therapy; Z79.52 Long term (current) use of systemic steroids; Z99.89 Dependence on other enabling machines and devices; Z87.891 Personal history of nicotine dependence
CPT/HCPCS: 36415; 71045; 72131; 72158; 72195; 80053; 80061; 81001; 83036; 83735; 84100; 85025; 85610; 85730; 86850; 86900; 86901; 87077; 87086; 87186; 96374; 96375; 96376; G0378; J0696; J1040; J1100; J1885; J2001; J2270; J3490; Q9967; S0020; U0003; U0005

== ENCOUNTER 2021-01-19 12:23 | Day surgery (SDC) | payer MEDICARE, BC ==
[~2021-01-19 12:23] MED LIST changes: -Acetaminophen 500 MG TAB PO SCH; +INFLIXIMAB-DYYB 700 MG in Sodium Chloride 0.9% 250 ML 180 ML IV SCH; -INFLIXIMAB-DYYB 700 MG in Sodium Chloride 0.9% 250 ML 180 ML IVPB SCH; -diphenhydrAMINE 25 MG CAP PO SCH; +diphenhydrAMINE 25 MG in Sodium Chloride 0.9% 50 ML IVPB PRN; -diphenhydrAMINE 50 MG/ML VIAL IVP SCH
[2021-01-19 12:45] VITALS: BP 140/90; TEMP 98.1
[2021-01-19] MEDS ORDERED: Acetaminophen 500 MG TAB ONE (12:47)
== END 2021-01-19 16:21 | disposition home or self-care (01) ==
LOC: ONC/OP 12:23
PROVIDERS: ATTEND Internal Medicine Rheumatology
DX: L40.50 Arthropathic psoriasis, unspecified (principal); Z88.2 Allergy status to sulfonamides; Z88.5 Allergy status to narcotic agent
CPT/HCPCS: 96413; 96415; J1200; J7050; Q5103

== ENCOUNTER 2021-03-09 12:57 | Day surgery (SDC) | payer MEDICARE, BC ==
[2021-03-09] MEDS ORDERED: Sodium Chloride 0.9% 10 ML ONE (13:09)
[2021-03-09 14:00] VITALS: BP 127/58; TEMP 98.1
[2021-03-09 14:12] LABS: #Basophils 0.1 thou/uL (0.0-0.2); #Eosinphils 0.2 thou/uL (0.0-0.7); #Lymphocytes 1.4 thou/uL (1.20-3.40); #Neutrophils 4.6 thou/uL (1.40-6.50); %Basophils 1.3 % (0.0-1.0); %Eosinophils 2.9 % (0.0-10.0); %Lymphocytes 19.4 % (21.0-51.0); %Monocytes 13.4 % (0.0-10.0); Hemoglobin 13.7 g/dL (12.0-16.0); Mean Corpuscular HGB CONC 33.7 g/dL (32.0-36.0); Mean Corpuscular Hemoglobin 33.2 pg (27.0-31.0); Mean Corpuscular Volume 98.5 fL (78.0-98.0); Mean Platelet Volume 10.5 fL (7.4-10.4); Platelet Count 123 thou/uL (130-400); RBC Distribution Width 11.8 % (11.5-14.5); Red Blood Cell (RBC) Count 4.14 mill/uL (4.20-5.40); White Blood Cell (WBC) Count 7.3 thou/uL (4.8-10.8)
[2021-03-09 14:18] LABS: ALT (SGPT) 35 U/L (8-55); AST (SGOT) 43 U/L (5-34); Albumin 3.5 g/dL (3.4-4.8); Alkaline Phosphatase 80 U/L (40-110); Anion Gap 15 mmol/L (10-20); BUN (Urea Nitrogen) 14 mg/dL (9.8-20.1); Bilirubin, Total 0.6 mg/dL (0.2-1.2); CRP (Inflammatory) Less than 0.50 mg/dL (= or < 0.5); Calc. Creatinine Clearance 0 mL/min (70-130); Calcium 9.2 mg/dL (7.8-10.44); Carbon Dioxide 26 mmol/L (23-31); Chloride 99 mmol/L (98-107); Globulin 2.9 g/dL (2.4-3.5); Glucose 129 mg/dL (80-115); Protein, Total 6.4 g/dL (5.8-8.1); Sodium 137 mmol/L (136-145)
== END 2021-03-09 15:42 | disposition home or self-care (01) ==
LOC: ONC/OP 12:57
PROVIDERS: ATTEND Internal Medicine Rheumatology
DX: L40.50 Arthropathic psoriasis, unspecified (principal); Z88.1 Allergy status to other antibiotic agents; Z88.2 Allergy status to sulfonamides; Z88.5 Allergy status to narcotic agent
CPT/HCPCS: 80053; 85025; 85652; 86140; 96367; 96413; 96415; J1200; J7050; Q5103

== ENCOUNTER 2021-04-05 14:53 | Outpatient (CLI) | payer MEDICARE, BC | END 2021-04-05 14:54 | disposition home or self-care (01) | LOC: RAD-FRANK 14:53 | PROVIDERS: ATTEND Specialist | DX: M47.26 Other spondylosis with radiculopathy, lumbar region (principal) | CPT/HCPCS: 72120 ==

== ENCOUNTER 2021-07-27 12:43 | Day surgery (SDC) | payer MEDICARE, BC ==
[~2021-07-27 12:43] MED LIST changes: -diphenhydrAMINE 25 MG in Sodium Chloride 0.9% 50 ML IVPB PRN; +diphenhydrAMINE 50 MG/ML VIAL IVP PRN
[2021-07-27] MEDS ORDERED: diphenhydrAMINE 25 MG CAP ONE (12:59)
[2021-07-27] MEDS ORDERED: diphenhydrAMINE 50 MG/ML VIAL ONE (13:01)
== END 2021-07-27 15:22 | disposition home or self-care (01) ==
LOC: ONC/OP 12:43
PROVIDERS: ATTEND Internal Medicine Rheumatology
DX: L40.50 Arthropathic psoriasis, unspecified (principal); Z88.1 Allergy status to other antibiotic agents; Z88.2 Allergy status to sulfonamides; Z88.5 Allergy status to narcotic agent
CPT/HCPCS: 96375; 96413; 96415; J1200; J7050; Q5103

== ENCOUNTER 2021-09-07 12:44 | Day surgery (SDC) | payer MEDICARE, BC ==
[~2021-09-07 12:44] MED LIST changes: +Acetaminophen 500 MG TAB PO SCH; +INFLIXIMAB DYYB IV SCH; -INFLIXIMAB-DYYB 700 MG in Sodium Chloride 0.9% 250 ML 180 ML IV SCH; +SODIUM CHLORIDE 0.9% IV SCH; -diphenhydrAMINE 50 MG/ML VIAL IVP PRN; +diphenhydrAMINE 50 MG/ML VIAL IVP SCH
[2021-09-07] MEDS ORDERED: diphenhydrAMINE 50 MG/ML VIAL ONE (13:07)
== END 2021-09-07 16:04 | disposition home or self-care (01) ==
LOC: ONC/OP 12:44
PROVIDERS: ATTEND Internal Medicine Rheumatology
DX: L40.50 Arthropathic psoriasis, unspecified (principal); Z88.1 Allergy status to other antibiotic agents; Z88.2 Allergy status to sulfonamides; Z88.8 Allergy status to other drugs, medicaments and biological substances
CPT/HCPCS: 96413; 96415; J1200; J7050; Q5103

== ENCOUNTER 2021-09-16 13:11 | Outpatient (CLI) | payer MEDICARE, BC | END 2021-09-16 13:12 | disposition home or self-care (01) | LOC: BICMAMMO 13:11 | PROVIDERS: ATTEND Internal Medicine Rheumatology | DX: M81.0 Age-related osteoporosis without current pathological fracture (principal); M85.852 Other specified disorders of bone density and structure, left thigh | CPT/HCPCS: 77080 ==

== ENCOUNTER 2021-11-04 12:46 | Day surgery (SDC) | payer MEDICARE, BC ==
[~2021-11-04 12:46] MED LIST changes: -INFLIXIMAB DYYB IV SCH; +INFLIXIMAB-DYYB 600 MG in Sodium Chloride 0.9% 250 ML 190 ML IVPB SCH; +INFLIXIMAB-DYYB 600 MG in Sodium Chloride 0.9% 250 ML 250 ML IV SCH; -SODIUM CHLORIDE 0.9% IV SCH
[2021-11-04] MEDS ORDERED: diphenhydrAMINE 25 MG CAP ONE (13:44)
[2021-11-04] MEDS ORDERED: diphenhydrAMINE 50 MG/ML VIAL ONE (13:46)
[2021-11-04 14:54] VITALS: BP 130/63; TEMP 97.7
== END 2021-11-04 16:15 | disposition home or self-care (01) ==
LOC: ONC/OP 12:46
PROVIDERS: ATTEND Internal Medicine Rheumatology
DX: L40.50 Arthropathic psoriasis, unspecified (principal); Z88.1 Allergy status to other antibiotic agents; Z88.2 Allergy status to sulfonamides; Z88.8 Allergy status to other drugs, medicaments and biological substances
CPT/HCPCS: 96375; 96413; 96415; J1200; J7050; Q5103

== ENCOUNTER 2021-12-07 13:10 | Outpatient (CLI) | payer MEDICARE, BC | END 2021-12-07 13:11 | disposition home or self-care (01) | LOC: BICRAD 13:10 | PROVIDERS: ATTEND Internal Medicine Rheumatology | DX: M17.12 Unilateral primary osteoarthritis, left knee (principal) ==

== ENCOUNTER 2021-12-16 12:53 | Day surgery (SDC) | payer MEDICARE, BC ==
[~2021-12-16 12:53] MED LIST changes: +INFLIXIMAB-DYYB 600 MG in Sodium Chloride 0.9% 250 ML 190 ML IV SCH; -INFLIXIMAB-DYYB 600 MG in Sodium Chloride 0.9% 250 ML 190 ML IVPB SCH; -INFLIXIMAB-DYYB 600 MG in Sodium Chloride 0.9% 250 ML 250 ML IV SCH
[2021-12-16] MEDS ORDERED: diphenhydrAMINE 50 MG/ML VIAL ONE (13:14)
[2021-12-16 13:25] VITALS: BP 125/60; TEMP 97.9
== END 2021-12-16 15:57 | disposition home or self-care (01) ==
LOC: ONC/OP 12:53
PROVIDERS: ATTEND Internal Medicine Rheumatology
DX: L40.50 Arthropathic psoriasis, unspecified (principal); Z88.1 Allergy status to other antibiotic agents; Z88.2 Allergy status to sulfonamides; Z88.5 Allergy status to narcotic agent
CPT/HCPCS: 96375; 96413; 96415; J1200; J7050; Q5103

== ENCOUNTER 2022-01-20 13:33 | Outpatient (CLI) | payer MEDICARE, BC | END 2022-01-20 13:34 | disposition home or self-care (01) | LOC: BICRAD 13:33 | PROVIDERS: ATTEND Nurse Practitioner Family | DX: M47.814 Spondylosis without myelopathy or radiculopathy, thoracic region (principal); M47.817 Spondylosis without myelopathy or radiculopathy, lumbosacral region; M43.16 Spondylolisthesis, lumbar region; M25.78 Osteophyte, vertebrae; M51.36 Other intervertebral disc degeneration, lumbar region; Z96.7 Presence of other bone and tendon implants | CPT/HCPCS: 72072; 72120 ==

== ENCOUNTER 2022-03-17 10:55 | Day surgery (SDC) | payer MEDICARE, BC ==
[2022-03-17] MEDS ORDERED: Acetaminophen 500 MG TAB ONE (11:58)
[2022-03-17] MEDS ORDERED: diphenhydrAMINE 50 MG/ML VIAL ONE (11:58)
[2022-03-17 13:30] VITALS: BP 169/75; TEMP 97.9
== END 2022-03-17 17:40 | disposition home or self-care (01) ==
LOC: ONC/OP 10:55
PROVIDERS: ATTEND Internal Medicine Rheumatology
DX: L40.50 Arthropathic psoriasis, unspecified (principal); Z88.1 Allergy status to other antibiotic agents; Z88.2 Allergy status to sulfonamides; Z88.8 Allergy status to other drugs, medicaments and biological substances
CPT/HCPCS: 96375; 96413; 96415; J1200; J7050; Q5103

== ENCOUNTER 2022-05-16 13:27 | Outpatient (CLI) | payer MEDICARE, BC | END 2022-05-16 13:28 | disposition home or self-care (01) | LOC: BICCT 13:27 | PROVIDERS: ATTEND Nurse Practitioner Family | DX: R91.1 Solitary pulmonary nodule (principal); R91.8 Other nonspecific abnormal finding of lung field; Z86.16 Personal history of COVID-19 | CPT/HCPCS: 71260; 82565 ==

== ENCOUNTER 2022-05-26 09:55 | Day surgery (SDC) | payer MEDICARE, BC ==
[~2022-05-26 09:55] MED LIST changes: -INFLIXIMAB-DYYB 600 MG in Sodium Chloride 0.9% 250 ML 190 ML IV SCH
[2022-05-26] MEDS ORDERED: INFLIXIMAB-DYYB 600 MG in Sodium Chloride 0.9% 250 ML 190 ML IV SCH (10:15)
[2022-05-26 10:58] LABS: #Basophils 0.1 thou/uL (0.0-0.2); #Eosinphils 0.1 thou/uL (0.0-0.7); #Lymphocytes 2.5 thou/uL (1.20-3.40); #Monocytes 0.7 thou/uL (0.11-0.59); #Neutrophils 3.5 thou/uL (1.40-6.50); %Basophils 1.4 % (0.0-1.0); %Eosinophils 1.9 % (0.0-10.0); %Lymphocytes 36.5 % (21.0-51.0); %Monocytes 9.3 % (0.0-10.0); %Neutrophils 50.9 % (42.0-75.0); Hemoglobin 12.3 g/dL (12.0-16.0); Mean Corpuscular HGB CONC 33.2 g/dL (32.0-36.0); Mean Corpuscular Hemoglobin 34.1 pg (27.0-31.0); Mean Platelet Volume 9.6 fL (7.4-10.4); Platelet Count 133 10x3/uL (130-400); RBC Distribution Width 13.1 % (11.5-14.5); Red Blood Cell (RBC) Count 3.61 mill/uL (4.20-5.40); White Blood Cell (WBC) Count 6.9 10x3/uL (4.8-10.8)
[2022-05-26] MEDS ORDERED: diphenhydrAMINE 50 MG/ML VIAL ONE (11:19)
[2022-05-26 11:26] LABS: ALT (SGPT) 42 U/L (8-55); AST (SGOT) 35 U/L (5-34); Albumin 3.4 g/dL (3.4-4.8); Alkaline Phosphatase 105 U/L (40-110); Anion Gap 13 mmol/L (10-20); BUN (Urea Nitrogen) 11 mg/dL (9.8-20.1); Bilirubin, Total 0.3 mg/dL (0.2-1.2); CRP (Inflammatory) Less than 0.50 mg/dL (= or < 0.5); Calc. Creatinine Clearance 0 mL/min (70-130); Carbon Dioxide 25 mmol/L (23-31); Chloride 101 mmol/L (98-107); Estimated GFR 82; Glucose 110 mg/dL (80-115); Potassium 3.4 mmol/L (3.5-5.1); Protein, Total 6.4 g/dL (5.8-8.1); Sodium 136 mmol/L (136-145)
[2022-05-26 11:42] LABS: HBCM Index 0.06 S/CO (0-0.79); HBSAg Index 0.19 S/CO (0-0.99); Hep A IgM AB Non-Reactive (NonReactive); Hep A IgM S/CO 0.13 S/CO (0-0.79); Hep B Surf Ag Non-Reactive S/CO (NonReactive); Hep C IgG Ab Non-Reactive (NonReactive); Hep C Index 0.09 S/CO (0-0.79); Hepatitis B Core IgM Abs Non-Reactive (NonReactive)
[2022-05-26 12:21] VITALS: BP 161/69; TEMP 98.2
[2022-06-01 04:13] LABS: QuantiFERON-TB Gold Plus Negative (Negative)
== END 2022-05-26 16:36 | disposition home or self-care (01) ==
LOC: ONC/OP 09:55
PROVIDERS: ATTEND Internal Medicine Rheumatology
DX: L40.50 Arthropathic psoriasis, unspecified (principal); Z88.1 Allergy status to other antibiotic agents; Z88.2 Allergy status to sulfonamides; Z88.5 Allergy status to narcotic agent; B17.9 Acute viral hepatitis, unspecified
CPT/HCPCS: 80053; 80074; 85025; 85652; 86140; 86480; 96375; 96413; 96415; Q5103; J1200; J7050

== ENCOUNTER 2022-09-16 09:49 | Outpatient (CLI) | payer MEDICARE, BC | END 2022-09-16 09:50 | disposition home or self-care (01) | LOC: BICCT 09:49 | PROVIDERS: ATTEND Physician Assistant | DX: M51.26 Other intervertebral disc displacement, lumbar region (principal); M47.815 Spondylosis without myelopathy or radiculopathy, thoracolumbar region; M47.816 Spondylosis without myelopathy or radiculopathy, lumbar region; M47.817 Spondylosis without myelopathy or radiculopathy, lumbosacral region; Z98.890 Other specified postprocedural states; Z98.1 Arthrodesis status | CPT/HCPCS: 72131 ==

== ENCOUNTER 2022-10-11 16:25 | Outpatient (CLI) | payer MEDICARE, BC | END 2022-10-11 16:26 | disposition home or self-care (01) | LOC: RAD-FRANK 16:25 | PROVIDERS: ATTEND Nurse Practitioner Family | DX: Z01.818 Encounter for other preprocedural examination (principal); R91.8 Other nonspecific abnormal finding of lung field | CPT/HCPCS: 71046 ==

== ENCOUNTER 2022-11-29 10:25 | Day surgery (SDC) | payer MEDICARE, BC ==
[~2022-11-29 10:25] MED LIST changes: +INFLIXIMAB DYYB IV SCH; +INFLIXIMAB-DYYB 600 MG in Sodium Chloride 0.9% 250 ML 190 ML IV SCH; +SODIUM CHLORIDE 0.9% IV SCH
[2022-11-29] MEDS ORDERED: INFLIXIMAB DYYB IV SCH (10:30)
[2022-11-29] MEDS ORDERED: SODIUM CHLORIDE 0.9% IV SCH (10:30)
[2022-11-29] MEDS ORDERED: diphenhydrAMINE 50 MG/ML VIAL ONE (11:25)
[2022-11-29 11:26] LABS: #Basophils 0.1 thou/uL (0.0-0.2); #Eosinphils 0.2 thou/uL (0.0-0.7); #Neutrophils 3.6 thou/uL (1.40-6.50); %Basophils 1.6 % (0.0-1.0); %Eosinophils 3.5 % (0.0-10.0); %Lymphocytes 25.9 % (21.0-51.0); %Monocytes 14.7 % (0.0-10.0); %Neutrophils 53.1 % (42.0-75.0); Mean Corpuscular HGB CONC 32.5 g/dL (32.0-36.0); Mean Corpuscular Hemoglobin 30.9 pg (27.0-31.0); Mean Platelet Volume 11.3 fL (7.4-10.4); Platelet Count 190 10x3/uL (130-400); RBC Distribution Width 14.2 % (11.5-14.5); Red Blood Cell (RBC) Count 4.21 mill/uL (4.20-5.40); White Blood Cell (WBC) Count 6.8 10x3/uL (4.8-10.8)
[2022-11-29 11:48] VITALS: BP 130/60; TEMP 98.3
[2022-11-29 11:55] LABS: ALT (SGPT) 22 U/L (8-55); AST (SGOT) 30 U/L (5-34); Albumin 4.1 g/dL (3.4-4.8); Alkaline Phosphatase 97 U/L (40-110); Anion Gap 14 mmol/L (10-20); BUN (Urea Nitrogen) 13 mg/dL (9.8-20.1); Bilirubin, Total 0.4 mg/dL (0.2-1.2); CRP (Inflammatory) 0.56 mg/dL (= or < 0.5); Calc. Creatinine Clearance 0 mL/min (70-130); Calcium 9.9 mg/dL (7.8-10.44); Carbon Dioxide 27 mmol/L (23-31); Estimated GFR 76; Globulin 3.1 g/dL (2.4-3.5); Glucose 99 mg/dL (80-115); Potassium 3.5 mmol/L (3.5-5.1); Protein, Total 7.2 g/dL (5.8-8.1)
[2022-11-29] MEDS ORDERED: FLU VACC QS2023(65UP)/MF59C/PF 60 MCG/0.5 ML SYRINGE IM ONE (12:15)
[2022-11-29 12:26] LABS: Chloride 96 mmol/L (98-107); Sodium 133 mmol/L (136-145)
== END 2022-11-29 14:23 | disposition home or self-care (01) ==
LOC: ONC/OP 10:25
PROVIDERS: ATTEND Internal Medicine Rheumatology
DX: L40.50 Arthropathic psoriasis, unspecified (principal); Z88.1 Allergy status to other antibiotic agents; Z88.2 Allergy status to sulfonamides; Z88.5 Allergy status to narcotic agent
CPT/HCPCS: 80053; 85025; 86140; 96413; 96415; Q5103; J1200; J7050

== ENCOUNTER 2023-01-18 21:19 | Inpatient (IN) | payer MEDICARE, BC ==
[~2023-01-18 21:19] MED LIST changes: -Acetaminophen 500 MG TAB PO PRN; -Acetaminophen 500 MG TAB PO SCH; -INFLIXIMAB DYYB IV SCH; -INFLIXIMAB-DYYB 600 MG in Sodium Chloride 0.9% 250 ML 190 ML IV SCH; +Iopamidol-370 76% 500 ML MDV (1 ML CHARGE) ONE; -SODIUM CHLORIDE 0.9% IV SCH; -diphenhydrAMINE 50 MG/ML VIAL IVP SCH
[2023-01-18] MEDS ORDERED: fentaNYL 50 mcg/mL 1 mL Vial ONE (21:50)
[2023-01-18] MEDS ORDERED: Acetaminophen 500 MG TAB ONE (21:50)
[2023-01-18 21:52] LABS: #Monocytes 0.1 thou/uL (0.11-0.59); #Neutrophils 3.7 thou/uL (1.40-6.50); %Basophils 0.2 % (0.0-1.0); %Lymphocytes 15.5 % (21.0-51.0); %Monocytes 2.9 % (0.0-10.0); %Neutrophils 80.7 % (42.0-75.0); Hematocrit 40.6 % (36.0-47.0); Hemoglobin 13.4 g/dL (12.0-16.0); Mean Corpuscular Hemoglobin 31.2 pg (27.0-31.0); Mean Corpuscular Volume 94.4 fl (78.0-98.0); Mean Platelet Volume 11.8 fL (7.4-10.4); Platelet Count 166 10x3/uL (130-400); RBC Distribution Width 14.2 % (11.5-14.5); White Blood Cell (WBC) Count 4.5 10x3/uL (4.8-10.8)
[2023-01-18 22:17] LABS: Troponin I 0.012 ng/mL (< 0.028)
[2023-01-18 22:21] LABS: ALT (SGPT) 23 U/L (8-55); AST (SGOT) 37 U/L (5-34); Albumin 3.7 g/dL (3.4-4.8); Alkaline Phosphatase 105 U/L (40-110); Anion Gap 16 mmol/L (10-20); BUN (Urea Nitrogen) 8 mg/dL (9.8-20.1); Bilirubin, Total 0.5 mg/dL (0.2-1.2); Calc. Creatinine Clearance 0 mL/min (70-130); Calcium 8.9 mg/dL (7.8-10.44); Carbon Dioxide 22 mmol/L (23-31); Chloride 100 mmol/L (98-107); Estimated GFR 72; Globulin 3.1 g/dL (2.4-3.5); Glucose 226 mg/dL (80-115); Potassium 3.3 mmol/L (3.5-5.1); Protein, Total 6.8 g/dL (5.8-8.1); Sodium 135 mmol/L (136-145)
[2023-01-18] MEDS ORDERED: Morphine 10 MG/ML VIAL ONE (22:42)
[2023-01-19] MEDS ORDERED: Ondansetron ODT 4 MG TAB PO PRN (01:14)
[2023-01-19] MEDS ORDERED: Ipratropium/Albuterol 3 ML NEB NEB PRN (01:14)
[2023-01-19] MEDS ORDERED: Acetaminophen 325 MG TAB PO PRN (01:14)
[2023-01-19] MEDS ORDERED: Ondansetron PF 4 MG/2 ML Vial IVP PRN (01:14)
[2023-01-19] MEDS ORDERED: Furosemide 40 MG/4 ML VIAL SLOW IVP SCH (01:45)
[2023-01-19 01:49] LABS: Troponin I 0.017 ng/mL (< 0.028)
[2023-01-19 02:02] VITALS: BMI 42.7
[2023-01-19] MEDS: Morphine 4 MG/ML VIAL SLOW IVP PRN ×5 (02:25→21:10)
[2023-01-19] MEDS ORDERED: Morphine 4 MG/ML VIAL SLOW IVP PRN (03:00)
[2023-01-19 05:21] LABS: Magnesium 1.5 mg/dL (1.6-2.6)
[2023-01-19 05:27] LABS: Troponin I 0.035 ng/mL (< 0.028)
[2023-01-19] MEDS ORDERED: Furosemide 20 MG TAB PO PRN (07:37)
[2023-01-19] MEDS ORDERED: Non-Formulary Item 1 EACH (Tizanidine Hcl [Tizanidine Hcl] 2 MG Tablet) PO PRN (07:37)
[2023-01-19] MEDS ORDERED: Furosemide 80 MG TAB PO PRN (07:42)
[2023-01-19] MEDS ORDERED: Potassium Chloride 20 MEQ TAB PO SCH (08:00)
[2023-01-19] MEDS ORDERED: Non-Formulary Item 1 EACH (Valsartan [Diovan] 320 MG Tablet) PO SCH (09:00)
[2023-01-19] MEDS ORDERED: POTASSIUM CHLORIDE 20 MEQ PO SCH (09:00)
[2023-01-19] MEDS ORDERED: Non-Formulary Item 1 EACH (Leflunomide [Arava] 20 MG Tab) PO SCH (09:00)
[2023-01-19] MEDS ORDERED: predniSONE 5 MG TAB PO SCH (09:00)
[2023-01-19] MEDS: Amlodipine 5 MG TAB PO SCH ×2 (09:46→19:56)
[2023-01-19] MEDS: Valsartan 80 MG TAB PO SCH (09:46)
[2023-01-19] MEDS: Potassium Chloride 20 MEQ TAB PO SCH (09:47)
[2023-01-19] MEDS: DULoxetine 60 MG CAP PO SCH (09:47)
[2023-01-19] MEDS: Folic Acid 1 MG TAB PO SCH (09:47)
[2023-01-19] MEDS: Leflunomide 10 mg Tablet PO SCH (09:50)
[2023-01-19] MEDS: predniSONE 1 MG TAB PO SCH (09:51)
[2023-01-19] MEDS ORDERED: Magnesium 2 GM/50 ML(in water) 2 GM in Premix 1 BAG IVPB SCH (12:00)
[2023-01-19] MEDS: tiZANidine HCl 4 MG TAB PO PRN ×2 (13:12→19:55)
[2023-01-19] MEDS: Hydrochlorothiazide 25 MG TAB PO SCH (19:55)
[2023-01-19] MEDS: Gabapentin 300 MG CAP PO SCH (19:55)
[2023-01-19] MEDS: Atorvastatin Calcium 10 MG TAB PO SCH (19:56)
[2023-01-19] MEDS ORDERED: Pravastatin Sodium 40 MG TAB PO SCH (21:00)
[2023-01-20] MEDS: Morphine 4 MG/ML VIAL SLOW IVP PRN ×3 (01:48→20:26)
[2023-01-20 04:22] LABS: #Monocytes 1.1 thou/uL (0.11-0.59); #Neutrophils 7.1 thou/uL (1.40-6.50); %Basophils 0.4 % (0.0-1.0); %Eosinophils 0.2 % (0.0-10.0); %Lymphocytes 20.1 % (21.0-51.0); %Monocytes 10.6 % (0.0-10.0); %Neutrophils 68.4 % (42.0-75.0); Hemoglobin 11.6 g/dL (12.0-16.0); Mean Corpuscular HGB CONC 33.1 g/dL (32.0-36.0); Mean Corpuscular Hemoglobin 31.1 pg (27.0-31.0); Mean Corpuscular Volume 93.8 fl (78.0-98.0); Mean Platelet Volume 12.1 fL (7.4-10.4); Platelet Count 144 10x3/uL (130-400); RBC Distribution Width 14.7 % (11.5-14.5); Red Blood Cell (RBC) Count 3.73 mill/uL (4.20-5.40); White Blood Cell (WBC) Count 10.4 10x3/uL (4.8-10.8)
[2023-01-20 04:51] LABS: Anion Gap 12 mmol/L (10-20); BUN (Urea Nitrogen) 10 mg/dL (9.8-20.1); Calc. Creatinine Clearance 133 mL/min (70-130); Carbon Dioxide 26 mmol/L (23-31); Chloride 102 mmol/L (98-107); Estimated GFR 93; Glucose 96 mg/dL (80-115); Potassium 3.7 mmol/L (3.5-5.1); Sodium 136 mmol/L (136-145)
[2023-01-20] MEDS: Leflunomide 10 mg Tablet PO SCH (10:34)
[2023-01-20] MEDS: predniSONE 1 MG TAB PO SCH (10:35)
[2023-01-20] MEDS: Valsartan 80 MG TAB PO SCH (10:36)
[2023-01-20] MEDS: DULoxetine 60 MG CAP PO SCH (10:37)
[2023-01-20] MEDS: Folic Acid 1 MG TAB PO SCH (10:37)
[2023-01-20] MEDS: Amlodipine 5 MG TAB PO SCH ×2 (10:37→20:25)
[2023-01-20] MEDS: Potassium Chloride 20 MEQ TAB PO SCH (10:37)
[2023-01-20] MEDS: Atorvastatin Calcium 10 MG TAB PO SCH (20:25)
[2023-01-20] MEDS: Hydrochlorothiazide 25 MG TAB PO SCH (20:25)
[2023-01-20] MEDS: Gabapentin 300 MG CAP PO SCH (20:26)
[2023-01-21 04:46] LABS: #Basophils 0.1 thou/uL (0.0-0.2); #Eosinphils 0.2 thou/uL (0.0-0.7); #Monocytes 1.1 thou/uL (0.11-0.59); #Neutrophils 3.5 thou/uL (1.40-6.50); %Basophils 0.8 % (0.0-1.0); %Eosinophils 2.7 % (0.0-10.0); %Monocytes 13.8 % (0.0-10.0); %Neutrophils 45.2 % (42.0-75.0); Hematocrit 34.3 % (36.0-47.0); Hemoglobin 11.4 g/dL (12.0-16.0); Mean Corpuscular HGB CONC 33.2 g/dL (32.0-36.0); Mean Corpuscular Hemoglobin 31.6 pg (27.0-31.0); Mean Platelet Volume 11.9 fL (7.4-10.4); Platelet Count 138 10x3/uL (130-400); RBC Distribution Width 14.6 % (11.5-14.5); Red Blood Cell (RBC) Count 3.61 mill/uL (4.20-5.40); White Blood Cell (WBC) Count 7.7 10x3/uL (4.8-10.8)
[2023-01-21 05:16] LABS: Anion Gap 8 mmol/L (10-20); BUN (Urea Nitrogen) 8 mg/dL (9.8-20.1); Calc. Creatinine Clearance 135 mL/min (70-130); Calcium 8.2 mg/dL (7.8-10.44); Carbon Dioxide 30 mmol/L (23-31); Chloride 100 mmol/L (98-107); Estimated GFR 93; Glucose 88 mg/dL (80-115); Potassium 3.6 mmol/L (3.5-5.1); Sodium 134 mmol/L (136-145)
[2023-01-21] MEDS: Morphine 4 MG/ML VIAL SLOW IVP PRN ×2 (05:57→11:48)
[2023-01-21] MEDS: Amlodipine 5 MG TAB PO SCH (09:40)
[2023-01-21] MEDS: DULoxetine 60 MG CAP PO SCH (09:40)
[2023-01-21] MEDS: Leflunomide 10 mg Tablet PO SCH (09:40)
[2023-01-21] MEDS: Valsartan 80 MG TAB PO SCH (09:40)
[2023-01-21] MEDS: Folic Acid 1 MG TAB PO SCH (09:40)
[2023-01-21] MEDS: predniSONE 1 MG TAB PO SCH (09:41)
[2023-01-21] MEDS: Potassium Chloride 20 MEQ TAB PO SCH (09:41)
[2023-01-21 11:47] VITALS: BP 146/78; TEMP 97.4
== END 2023-01-21 16:00 | disposition home or self-care (01) | DRG 189 ==
LOC: ERS 21:19 → 2NO 01-19 00:34 → OBSVTOIN 01-19 16:28
PROVIDERS: ADMIT Student in an Organized Health Care Education/Training Program; ATTEND Internal Medicine
DX: J96.01 Acute respiratory failure with hypoxia (principal); Z68.41 Body mass index [BMI] 40.0-44.9, adult; J98.11 Atelectasis; I10 Essential (primary) hypertension; E87.6 Hypokalemia; E66.01 Morbid (severe) obesity due to excess calories; G47.33 Obstructive sleep apnea (adult) (pediatric); G89.29 Other chronic pain; M54.50 Low back pain, unspecified; L40.9 Psoriasis, unspecified; E78.5 Hyperlipidemia, unspecified; Z96.611 Presence of right artificial shoulder joint; Z98.890 Other specified postprocedural states; Z79.899 Other long term (current) drug therapy; Z88.1 Allergy status to other antibiotic agents; Z88.2 Allergy status to sulfonamides
CPT/HCPCS: 36415; 71045; 71275; 80048; 80053; 83735; 83880; 84145; 84484; 85025; 85379; 93005; 93306; 93970; 94760; 96372; 96374; 96375; 96376; G0378; J1650; J1940; J2270; J3010; J3475; Q9967

== ENCOUNTER 2023-02-06 12:47 | Emergency (ER) | payer MEDICARE, BC ==
[2023-02-06 13:19] LABS: #Basophils 0.1 thou/uL (0.0-0.2); #Eosinphils 0.2 thou/uL (0.0-0.7); #Monocytes 0.9 thou/uL (0.11-0.59); #Neutrophils 3.1 thou/uL (1.40-6.50); %Eosinophils 2.6 % (0.0-10.0); %Lymphocytes 28.6 % (21.0-51.0); %Monocytes 15.5 % (0.0-10.0); Hematocrit 41.1 % (36.0-47.0); Hemoglobin 13.7 g/dL (12.0-16.0); Mean Corpuscular HGB CONC 33.3 g/dL (32.0-36.0); Mean Corpuscular Hemoglobin 31.5 pg (27.0-31.0); Mean Corpuscular Volume 94.5 fl (78.0-98.0); Mean Platelet Volume 12.1 fL (7.4-10.4); Platelet Count 158 10x3/uL (130-400); RBC Distribution Width 13.5 % (11.5-14.5); Red Blood Cell (RBC) Count 4.35 mill/uL (4.20-5.40); White Blood Cell (WBC) Count 5.9 10x3/uL (4.8-10.8)
[2023-02-06 13:45] LABS: ALT (SGPT) 16 U/L (8-55); AST (SGOT) 28 U/L (5-34); Albumin 3.8 g/dL (3.4-4.8); Alkaline Phosphatase 74 U/L (40-110); Anion Gap 15 mmol/L (10-20); BUN (Urea Nitrogen) 8 mg/dL (9.8-20.1); Bilirubin, Total 0.6 mg/dL (0.2-1.2); Calc. Creatinine Clearance 0 mL/min (70-130); Calcium 9.3 mg/dL (7.8-10.44); Carbon Dioxide 24 mmol/L (23-31); Chloride 95 mmol/L (98-107); Estimated GFR 79; Globulin 3.3 g/dL (2.4-3.5); Glucose 99 mg/dL (80-115); Lipase 5 U/L (8-78); Potassium 3.5 mmol/L (3.5-5.1); Protein, Total 7.1 g/dL (5.8-8.1); Sodium 130 mmol/L (136-145)
[2023-02-06] MEDS ORDERED: Lidocaine 2% Viscous Solution 10 ML, Aluminum & Magnesium Hydroxide 30 ML SSW SCH (14:30)
[2023-02-06] MEDS ORDERED: Sucralfate 1 GM/10 ML UDCUP ONE (14:36)
[2023-02-06] MEDS ORDERED: Ondansetron PF 4 MG/2 ML Vial ONE (14:37)
[2023-02-06] MEDS ORDERED: fentaNYL 50 mcg/mL 1 mL Vial ONE (14:37)
[2023-02-06 15:22] LABS: Bacteria/HPF None Seen HPF (None Seen); Bilirubin Negative (Negative); Blood, Urine Negative (Negative); CAUTI Indications for Culture Pelvic or flank pain; Clarity Clear (Clear); Glucose, Urine (Dipstick) Normal (Negative); Ketone, Urine Negative (Negative); Leukocyte 75 Leu/uL (Negative); Nitrite Negative (Negative); Protein, Urine (Dipstick) 10 mg/dL (Neg-Trace); RBC/HPF 0-3 HPF (0-3); Specific Gravity, Urine 1.023 (1.002-1.036); Urobilinogen Normal mg/dL (Less than 2)
[2023-02-06 15:46] LABS: Urine Culture Reflex No No
[2023-02-06 15:58] LABS: Troponin I Less than 0.010 ng/mL (< 0.028)
[2023-02-06] MEDS ORDERED: Dicyclomine 20 MG/2 ML VIAL ONE (17:40)
== END 2023-02-06 17:50 | disposition home or self-care (01) ==
LOC: ERS 12:47
DX: R10.31 Right lower quadrant pain (principal); I10 Essential (primary) hypertension
CPT/HCPCS: 74177; 80053; 81001; 83605; 83690; 83880; 84484; 85025; 93005; J3010; 36415; 96361; 96372; 96374; 96375; J2405; Q9967

== ENCOUNTER 2023-03-29 10:47 | Day surgery (SDC) | payer MEDICARE ==
[~2023-03-29 10:47] MED LIST changes: +Acetaminophen 500 MG TAB PO PRN; +INFLIXIMAB DYYB IV SCH; -Iopamidol-370 76% 500 ML MDV (1 ML CHARGE) ONE; +SODIUM CHLORIDE 0.9% IV SCH; +diphenhydrAMINE 50 MG/ML VIAL IVP SCH
[2023-03-29 12:03] VITALS: BP 145/63; TEMP 97.9
[2023-03-29] MEDS: INFLIXIMAB-DYYB 600 MG in Sodium Chloride 0.9% 250 ML 190 ML IV SCH (12:11)
[2023-03-29] MEDS ORDERED: Acetaminophen 500 MG TAB PO SCH (16:30)
== END 2023-03-29 14:43 | disposition home or self-care (01) ==
LOC: ONC/OP 10:47
PROVIDERS: ATTEND Internal Medicine Rheumatology
DX: L40.50 Arthropathic psoriasis, unspecified (principal); Z88.1 Allergy status to other antibiotic agents; Z88.2 Allergy status to sulfonamides; Z88.5 Allergy status to narcotic agent
CPT/HCPCS: 96413; Q5103; J7050

== ENCOUNTER 2023-06-30 09:56 | Day surgery (SDC) | payer MEDICARE ==
[~2023-06-30 09:56] MED LIST changes: +Acetaminophen 500 MG TAB PO SCH; +diphenhydrAMINE 50 MG/ML VIAL IVP PRN
[2023-06-30] MEDS ORDERED: diphenhydrAMINE 50 MG/ML VIAL ONE (10:42)
[2023-06-30 10:51] VITALS: BP 148/71; TEMP 98
[2023-06-30] MEDS: diphenhydrAMINE 50 MG/ML VIAL IVP SCH (10:58)
[2023-06-30] MEDS: INFLIXIMAB-DYYB 600 MG in Sodium Chloride 0.9% 250 ML 190 ML IV SCH (10:58)
== END 2023-06-30 13:25 | disposition home or self-care (01) ==
LOC: ONC/OP 09:56
PROVIDERS: ATTEND Internal Medicine Rheumatology
DX: L40.50 Arthropathic psoriasis, unspecified (principal); Z88.1 Allergy status to other antibiotic agents; Z88.2 Allergy status to sulfonamides
CPT/HCPCS: 96375; 96413; 96415; Q5103; J1200; J7050

== ENCOUNTER 2023-08-11 09:57 | Day surgery (SDC) | payer MEDICARE ==
[~2023-08-11 09:57] MED LIST changes: -INFLIXIMAB DYYB IV SCH; -SODIUM CHLORIDE 0.9% IV SCH; -diphenhydrAMINE 50 MG/ML VIAL IVP SCH
[2023-08-11] MEDS ORDERED: diphenhydrAMINE 50 MG/ML VIAL ONE (11:06)
[2023-08-11] MEDS: diphenhydrAMINE 50 MG/ML VIAL IVP SCH (11:07)
[2023-08-11] MEDS: INFLIXIMAB-DYYB 600 MG in Sodium Chloride 0.9% 250 ML 190 ML IV SCH (11:27)
[2023-08-11 12:11] VITALS: BP 169/73; TEMP 97.9
[2023-08-11 15:48] LABS: #Basophils 0.07 10x3/uL (0.0-0.2); %Basophils 1.2 % (0.0-1.0); %Eosinophils 2.4 % (0.0-10.0); %Lymphocytes 38.5 % (21.0-51.0); %Monocytes 12.3 % (0.0-10.0); %Neutrophils 44.2 % (42.0-75.0); Hematocrit 38.7 % (36.0-47.0); Hemoglobin 12.3 g/dL (12.0-16.0); Mean Corpuscular HGB CONC 31.8 g/dL (32.0-36.0); Mean Corpuscular Hemoglobin 32.5 pg (27.0-31.0); Mean Corpuscular Volume 102.1 fL (78.0-98.0); Mean Platelet Volume 13.2 fL (7.4-10.4); Platelet Count 138 10x3/uL (130-400); RBC Distribution Width 13.3 % (11.5-14.5); Red Blood Cell (RBC) Count 3.79 mill/uL (4.20-5.40)
[2023-08-11 16:18] LABS: CRP,High Sensitivity (Inhouse) 0.03 mg/dL (< or = 0.5)
[2023-08-11 16:19] LABS: ALT (SGPT) 17 U/L (8-55); AST (SGOT) 20 U/L (5-34); Albumin 2.8 g/dL (3.4-4.8); Alkaline Phosphatase 76 U/L (40-110); Anion Gap 14 mmol/L (10-20); BUN (Urea Nitrogen) 9 mg/dL (9.8-20.1); Bilirubin, Total 0.5 mg/dL (0.2-1.2); Calc. Creatinine Clearance 113 mL/min (70-130); Calcium 8.9 mg/dL (7.8-10.44); Carbon Dioxide 23 mmol/L (23-31); Chloride 107 mmol/L (98-107); Estimated GFR 85; Globulin 3.3 g/dL (2.4-3.5); Glucose 65 mg/dL (83-110); Protein, Total 6.1 g/dL (5.8-8.1); Sodium 140 mmol/L (136-145)
== END 2023-08-11 14:03 | disposition home or self-care (01) ==
LOC: ONC/OP 09:57
PROVIDERS: ATTEND Internal Medicine Rheumatology
DX: L40.50 Arthropathic psoriasis, unspecified (principal); Z88.1 Allergy status to other antibiotic agents; Z88.2 Allergy status to sulfonamides; Z88.8 Allergy status to other drugs, medicaments and biological substances
CPT/HCPCS: 80053; 85025; 86141; 96375; 96413; 96415; J1200; J7050; Q5103; 36592

== ENCOUNTER 2023-08-14 13:43 | Outpatient (CLI) | payer MEDICARE | END 2023-08-14 13:44 | disposition home or self-care (01) | LOC: BICMRI 13:43 | PROVIDERS: ATTEND Specialist | DX: S76.011A Strain of muscle, fascia and tendon of right hip, initial encounter (principal); M51.16 Intervertebral disc disorders with radiculopathy, lumbar region; M47.26 Other spondylosis with radiculopathy, lumbar region; M47.815 Spondylosis without myelopathy or radiculopathy, thoracolumbar region; M47.817 Spondylosis without myelopathy or radiculopathy, lumbosacral region; M48.061 Spinal stenosis, lumbar region without neurogenic claudication; Z98.890 Other specified postprocedural states | CPT/HCPCS: 72148; 72195 ==

== ENCOUNTER 2023-12-19 15:56 | Outpatient (CLI) | payer MEDICARE | END 2023-12-19 15:57 | disposition home or self-care (01) | LOC: BICCT 15:56 | PROVIDERS: ATTEND Physician Assistant | DX: Z98.1 Arthrodesis status (principal); M48.07 Spinal stenosis, lumbosacral region; M48.061 Spinal stenosis, lumbar region without neurogenic claudication | CPT/HCPCS: 72131 ==

== ENCOUNTER 2024-01-23 10:18 | Outpatient (CLI) | payer MEDICARE | END 2024-01-23 10:19 | disposition home or self-care (01) | LOC: BICMRI 10:18 | PROVIDERS: ATTEND Physician Assistant | DX: Z47.89 Encounter for other orthopedic aftercare (principal); M47.814 Spondylosis without myelopathy or radiculopathy, thoracic region; M47.815 Spondylosis without myelopathy or radiculopathy, thoracolumbar region; M48.04 Spinal stenosis, thoracic region; M25.78 Osteophyte, vertebrae; Z98.1 Arthrodesis status | CPT/HCPCS: 72128; 72146 ==

== ENCOUNTER 2024-02-05 15:07 | Outpatient (CLI) | payer MEDICARE | END 2024-02-05 15:08 | disposition home or self-care (01) | LOC: BICMAMMO 15:07 | PROVIDERS: ATTEND Internal Medicine Rheumatology | DX: M81.0 Age-related osteoporosis without current pathological fracture (principal); M85.851 Other specified disorders of bone density and structure, right thigh | CPT/HCPCS: 77080 ==

== ENCOUNTER 2024-03-28 11:49 | Outpatient (CLI) | payer MEDICARE | END 2024-03-28 11:50 | disposition home or self-care (01) | LOC: BICRAD 11:49 | PROVIDERS: ATTEND Physician Assistant | DX: M25.552 Pain in left hip (principal); M43.12 Spondylolisthesis, cervical region; M47.812 Spondylosis without myelopathy or radiculopathy, cervical region; M16.12 Unilateral primary osteoarthritis, left hip; Z98.1 Arthrodesis status | CPT/HCPCS: 72081 ==